=== PATIENT | male | born 1975 | race Two or more races ===

== ENCOUNTER 2021-12-07 17:07 | Emergency (ER) | payer OTHER, SELFPAY ==
--- NOTE | ~2021-12-07 | XR_ITS ---
EXAMINATION: XR CHEST CLINICAL INFORMATION: Chest pain COMPARISON: None TECHNIQUE: Frontal view of the chest was obtained. FINDINGS: No significant abnormality is noted involving the heart, lungs, mediastinum, bony thorax or soft tissues. XR/XR chest 1V IMPRESSION: No acute cardiopulmonary process.
--- NOTE | 2021-12-07 17:14 | ECG_ITS ---
Test Reason : bilat arm tingling Blood Pressure : / mmHG Vent. Rate : 093 BPM Atrial Rate : 093 BPM P-R Int : 166 ms QRS Dur : 140 ms QT Int : 372 ms P-R-T Axes : 041 -62 004 degrees QTc Int : 462 ms Normal sinus rhythm Right bundle branch block Left anterior fascicular block Bifascicular block Abnormal ECG No previous ECGs available Referred By: Generic ED Physician Electronically Signed By:MABEL FAUST
[2021-12-07 17:15] VITALS: BP 158/94; PULSE 97; RESP 18; TEMP 37; O2SAT 99; BMI 31.9
[2021-12-07 17:30] LABS: MANUAL DIFF FLAG NO
[2021-12-07 17:39] LABS: Basophils Absolute Auto 0.1 X10*3/uL (0.0-0.2); Basophils Percent Auto 1.1 % (0-2); Eosinophils Absolute Auto 0.3 X10*3/uL (0.0-0.4); Eosinophils Percent Auto 3.6 % (0-4); Hemoglobin 16.9 g/dl (14.0-18.0); Imm Gran Abs Auto 0.02 X10*3/uL (0.00-0.03); Imm Gran Pct Auto 0.3 % (0.0-0.4); Lymphocytes Absolute Auto 2.3 X10*3/uL (1.2-4.9); Lymphocytes Percent Auto 30.7 % (20-40); Mean Corpuscular HGB Conc 35.2 g/dl (31.0-36.0); Mean Corpuscular Hemoglobin 30.2 pg (27.0-33.0); Mean Corpuscular Volume 85.9 fL (80.0-98.0); Mean Platelet Volume 9.3 fL (9.4-12.4); Monocytes Absolute Auto 0.6 X10*3/uL (0.1-1.2); Monocytes Percent Auto 7.7 % (2-11); Neutrophils Absolute Auto 4.2 x10*3/uL (2.0-8.3); Neutrophils Percent Auto 56.6 % (45-73); Platelet Count 235 X10*3/uL (160-400); Red Blood Count 5.59 X10*6/uL (4.60-5.80); Red Cell Distribution Width 11.9 % (11.0-16.0); White Blood Count 7.5 X10*3/uL (4.8-10.8)
[2021-12-07 17:54] LABS: Anion Gap 14 (12-20); Blood Urea Nitrogen 11 mg/dL (9-16); Calcium 9.6 mg/dL (8.4-10.2); Carbon Dioxide 28 mmol/L (22-29); Chloride 102 mmol/L (96-108); Creatinine Clr Calc Pharmacy 91.7; Estimated Glomerular Filt Rate > 60; Glucose Random 110 mg/dL (60-115); Potassium 4.2 mmol/L (3.3-5.1); Sodium 140 mmol/L (135-145)
--- NOTE | 2021-12-07 20:44 | ED_ITS ---
HPI - General Adult General Chief complaint: General Medical Stated complaint: tingling arms lethargic Time Seen by Provider: 12/07/21 20:41 Source: patient Limitations: no limitations History of Present Illness HPI narrative: This is a 46-year-old male with history of type 2 diabetes, elevated cholesterol, and nicotine use, (vapes), who had felt very fatigued yesterday. This morning he woke up feeling like he had a hangover. Patient worked out today, including doing abdominal exercises, which he has been doing all week and subsequently had a tingling feeling in his upper arms, worse on the left. The right arm tingling has resolved but he still some tingling on the left side. The patient saw his primary care physician who did an EKG and noting that the patient had abnormality, sent the patient to the ED for evaluation. Patient denies any chest pain or shortness of breath. He has not had any nausea or sweats. Denies any neck pain. Related Data Previous Rx's Medication Instructions Recorded insulin degludec 100 unit/mL (3 40 unit (0.4 mL) subcut BEDTIME 11/29/20 mL) subcutaneous pen (Tresiba #45 mL FlexTouch U-100 insulin) bupropion HCl 150 mg 24 hr tablet, 150 mg PO QAM #90 tabs 02/27/21 extended release rosuvastatin 10 mg tablet 10 mg PO DAILY 90 days #90 tabs 04/25/21 flash glucose scanning reader #1 ea 05/15/21 (FreeStyle Job 14 Day [place]) flash glucose sensor (FreeStyle #1 ea 05/15/21 Job 14 Day Sensor kit) metformin 1,000 mg tablet 1,000 mg PO BID 90 days #180 tabs 09/11/21 pen needle, diabetic 31 gauge x #100 ea 12/03/21/16 (BD Ultra-Fine Mini Pen Needle) Allergies Allergy/AdvReac Type Severity Reaction Status Date / Time naproxen [NAPROXEN] Allergy Severe LIPS Verified 12/07/21 17:15 SWELL, Oral hives prednisone [PREDNISONE] Allergy Severe LIPS Verified 12/07/21 16:03 SWELL, Lip swelling, skin breaking Review of Systems Review of Systems: Yes all other systems are reviewed and are negative Constitutional: Constitutional: Reports as per HPI and Denies fever(s) Eyes: Eyes: Reports as per HPI and Reports no additional eye complaints ENT: Reports system reviewed and no additional complaints, except as documented, Reports as per HPI, Denies nasal congestion, Denies nasal discharge and Denies sore throat Cardiovascular: Cardiovascular: Reports as per HPI, Denies chest pain and Denies dyspnea Respiratory: Respiratory: Reports as per HPI, Denies cough and Denies dyspnea Gastrointestinal: Gastrointestinal: Reports as per HPI, Denies abdominal pain, Denies diarrhea and Denies vomiting Genitourinary: Genitourinary: Reports as per HPI, Denies hematuria, Denies dysuria and Denies urinary frequency Musculoskeletal: Musculoskeletal: Reports no additional musculoskeletal complaints and Denies numbness Integumentary/Breasts: Skin/Breast: Reports as per HPI and Denies rash Neurologic: Reports as per HPI, Denies focal weakness, Denies numbness and Reports paresthesias Psychiatric: Psychiatric: Reports no additional psychiatric complaints and Reports as per HPI Endocrine: Endocrine: Reports no additional endocrine complaints and Reports as per HPI Hematologic/Lymphatic: Hematologic/Lymphatic: Reports no additional hematologic/lymphatic complaints, Reports as per HPI and Reports other (No peripheral edema) [facility] Past Medical History Medical History (Updated 12/07/21 @ 20:44 by Krsihan Mcnair MD) Anxiety Insomnia PTSD (post-traumatic stress disorder) Type 2 diabetes mellitus Family History Family History (Updated 08/19/20 @ 10:14 by MIGUEL Nichols) Father No problems noted. Mother No problems noted. Social History Social History Housing: House Patient Tobacco Use Status: Former Tobacco user e-Cigarette/Vaping Use: Currently Using Second Hand Smoke Exposure: No Advance Directives: No Advance Directives Information Provided: No service: Yes Current occupational status: retired Cognitive needs: No Hearing needs: No Vision needs: No Physical Exam ED Vital Signs: Vital Signs - 24 hr 12/07/21 17:15 Temperature 98.6 F Pulse Rate 97 Respiratory Rate 18 Blood Pressure 158/94 H Pulse Oximetry 99 Oxygen Delivery Method Room Air BMI result Body Mass Index 31.9 Const General: no acute distress Orientation/consciousness: patient oriented x3 HENMT Head: Yes normal to inspection General nose exam: Normal external nose present Mouth: moist mucous membranes Throat: Yes posterior oropharynx normal, Yes tonsils normal and Yes uvula midline Eyes Eyelids: Yes eyelids normal Conjunctivae: conjunctivae normal Pupils: Equal, round and reactive pupils present Neck Neck: Yes supple Resp Effort & Inspection: normal respiratory effort Auscultation: clear to auscultation bilaterally Cardio Rate: regular rate Rhythm: regular rhythm Heart sounds: S1 normal heart sound present, S2 normal heart sound present, no gallops, no murmurs and no rubs GI Inspection: No distended Palpation (GI): Soft to palpation and nontender Auscultation: normal bowel sounds Skin General skin exam: other (Warm and dry) Neuro General: patient oriented x3 and CN's II-XI intact bilaterally Cranial nerves: Yes Equal, round and reactive pupils present Motor exam (neuro): 5/5 motor strength present throughout Extrem General: Yes no pedal edema Psych Affect: normal affect Attitude: cooperative Medical Decision Making [facility] Narrative Medical decision making narrative: Patient with paresthesias to his upper arms after working out, doing abdominal exercises this morning. Patient had resolution of the right-sided symptoms. Patient had felt very fatigued yesterday but has not had any chest pain or shortness of breath or nausea or unusual sweats. Patient appears well clinically. EKG was done at the PCP office and since it was abnormal. The patient was sent to the ED. EKG shows bifascicular block but no ischemic changes. Troponin is negative. Chest x-ray is negative. Patient likely had nerve contusion in his neck causing paresthesias in his arms. Patient is advised to avoid doing abdominal crunches or any other exercise which might strain his neck for the next week or so. He can follow up with primary care physician Lab Data Lab results reviewed: Yes I reviewed the patient's lab results. Result diagrams: 12/07/21 17:25 12/07/21 17:25 Labs: Lab Results 12/07/21 12/07/21 12/07/21 Range/Units 17:25 17:25 17:25 WBC 7.5 (4.8-10.8) X10*3/uL RBC 5.59 (4.60-5.80) X10*6/uL Hgb 16.9 (14.0-18.0) g/dl Hct 48.0 (42.0-52.0) % MCV 85.9 (80.0-98.0) fL MCH 30.2 (27.0-33.0) pg MCHC 35.2 (31.0-36.0) g/dl RDW 11.9 (11.0-16.0) % Plt Count 235 (160-400) X10*3/uL MPV 9.3 L (9.4-12.4) fL Immature Gran % (Auto) 0.3 (0.0-0.4) % Neut % (Auto) 56.6 (45-73) % Lymph % (Auto) 30.7 (20-40) % Roane % (Auto) 7.7 (2-11) % Eos % (Auto) 3.6 (0-4) % Baso % (Auto) 1.1 (0-2) % Lymph # (Auto) 2.3 (1.2-4.9) X10*3/uL Roane # (Auto) 0.6 (0.1-1.2) X10*3/uL Eos # (Auto) 0.3 (0.0-0.4) X10*3/uL Baso # (Auto) 0.1 (0.0-0.2) X10*3/uL Abs Immat Gran (auto) 0.02 (0.00-0.03) X10*3/uL Absolute Neuts (auto) 4.2 (2.0-8.3) x10*3/uL Absolute Nucleated RBC 0.000 (0.0-0.012) X10*3/uL Nucleated RBC % (auto) 0.0 (0.0-0.2) /100WBC Sodium 140 (135-145) mmol/L Potassium 4.2 (3.3-5.1) mmol/L Chloride 102 (96-108) mmol/L Carbon Dioxide 28 (22-29) mmol/L Anion Gap 14 (12-20) BUN 11 (9-16) mg/dL Creatinine 1.01 (0.5-1.4) mg/dL Estim Creat Clear Calc 91.7 Estimated GFR > 60 Random Glucose 110 (60-115) mg/dL Calcium 9.6 (8.4-10.2) mg/dL Troponin I High Sens 8.0 (<3.5-35.0) ng/L Imaging Data Chest x-ray: Radiologist's impression: IMPRESSION: No acute cardiopulmonary process. ECG Data Attestation: I personally reviewed and interpreted this ECG as follows: Interpretation: Sinus rhythm with a rate of 93. Right bundle-branch block. Left anterior fascicular block. No ST elevation depression. Discharge Plan Discharge Clinical Impression: Arm paresthesia, left, Bifascicular bundle branch block Patient Disposition: Home, Self-Care Instructions: Paresthesia (ED) Additional Instructions: Avoid doing ABS or other exercises which strain her neck, for the next week. Follow up with her primary care physician. Return for any new or worsened symptoms. Your EKG showed a bifascicular block, which is not in itself concerning. Prescriptions: No Action bupropion HCl 150 mg tablet extended release 24 hr 150 mg PO QAM Qty: 90 3RF rosuvastatin 10 mg tablet 10 mg PO DAILY 90 Days Qty: 90 4RF (DME) FreeStyle Job 14 Day [place] Misc See Rx Instructions .Route Qty: 1 3RF Rx Instructions: bid testing (DME) FreeStyle Job 14 Day Sensor Kit See Rx Instructions .Route Qty: 1 3RF Rx Instructions: BID testing metformin 1,000 mg tablet 1,000 mg PO BID 90 Days Qty: 180 0RF (DME) pen needle, diabetic [BD Ultra-Fine Mini Pen Needle] 31 gauge x 3/16 needle See Rx Instructions .ROUTE .MEDSUPPLY Qty: 100 2RF Rx Instructions: As directed Tresiba FlexTouch U-100 100 unit/mL (3 mL) insulin pen 40 unit subcut BEDTIME Qty: 45 3RF
== END 2021-12-07 20:57 | disposition home or self-care (01) ==
PROVIDERS: Emergency Provider Emergency Medicine; PCP Nurse Practitioner Family
DX: I45.2 Bifascicular block (principal); R20.2 Paresthesia of skin; E11.9 Type 2 diabetes mellitus without complications; F41.9 Anxiety disorder, unspecified; Z79.4 Long term (current) use of insulin; Z79.899 Other long term (current) drug therapy; Z79.02 Long term (current) use of antithrombotics/antiplatelets; Z87.891 Personal history of nicotine dependence
CPT/HCPCS: 36415; 71045; 80048; 84484; 85025; 93005; 99283; 99284

== ENCOUNTER 2022-01-18 06:22 | Outpatient (REF) | payer OTHER, SELFPAY ==
[2022-01-18 11:32] LABS: MANUAL DIFF FLAG NO
[2022-01-18 11:44] LABS: Appearance Urine Cloudy; Color Urine Yellow; Glucose Urine UA 100 mg/dL (Negative); Leukocyte Esterase Urine Negative (Negative); Nitrite Urine Negative (Negative); PH 5.5 (5.0-9.0); Specific Gravity - Urine >= 1.030 (1.005-1.025); Urine Blood Negative (Negative); Urine Ketones Trace mg/dL (Negative); Urine Protein Negative (Neg-Trace)
[2022-01-18 11:44] LABS: Basophils Absolute Auto 0.1 X10*3/uL (0.0-0.2); Eosinophils Absolute Auto 0.6 X10*3/uL (0.0-0.4); Eosinophils Percent Auto 6.5 % (0-4); Hematocrit 48.5 % (42.0-52.0); Hemoglobin 16.4 g/dl (14.0-18.0); Imm Gran Abs Auto 0.03 X10*3/uL (0.00-0.03); Imm Gran Pct Auto 0.3 % (0.0-0.4); Lymphocytes Absolute Auto 2.2 X10*3/uL (1.2-4.9); Lymphocytes Percent Auto 24.2 % (20-40); Mean Corpuscular HGB Conc 33.8 g/dl (31.0-36.0); Mean Corpuscular Hemoglobin 30.1 pg (27.0-33.0); Monocytes Absolute Auto 0.7 X10*3/uL (0.1-1.2); Monocytes Percent Auto 7.3 % (2-11); Neutrophils Absolute Auto 5.4 x10*3/uL (2.0-8.3); Neutrophils Percent Auto 60.7 % (45-73); Platelet Count 273 X10*3/uL (160-400); Red Blood Count 5.45 X10*6/uL (4.60-5.80); Red Cell Distribution Width 12.2 % (11.0-16.0); White Blood Count 8.9 X10*3/uL (4.8-10.8)
[2022-01-18 12:01] LABS: Estimated Average Glucose 183 mg/dL
[2022-01-18 12:28] LABS: TSH reflex Free T4 1.96 uIU/mL (0.32-4.0)
[2022-01-18 12:31] LABS: Alanine Aminotransferase 21 U/L (0-40); Albumin Level 4.5 g/dL (3.5-5.0); Alkaline Phosphatase 76 U/L (39-117); Anion Gap 13 (12-20); Aspartate Amino Transferase 16 U/L (5-37); Bilirubin Total 0.6 mg/dL (0.0-1.0); Blood Urea Nitrogen 16 mg/dL (9-16); Calcium 9.5 mg/dL (8.4-10.2); Carbon Dioxide 28 mmol/L (22-29); Chloride 101 mmol/L (96-108); Cholesterol 104 mg/dL; Estimated Glomerular Filt Rate > 60; Glucose Fasting 151 mg/dL (60-99); HDL Cholesterol 33 mg/dL; LDL Cholesterol Calculated 31 mg/dl; Potassium 4.1 mmol/L (3.3-5.1); Sodium 138 mmol/L (135-145); Total Protein 7.2 g/dL (6.5-8.0); Triglycerides 201 mg/dL
[2022-01-18 13:07] LABS: Creatinine Urine 345.19 mg/dL; Microalbum/Creatinine Ratio Ur 6.6 ug/mg cr
== END 2022-01-18 06:23 | disposition home or self-care (01) ==
LOC: HO.HMGCLDS 06:22
PROVIDERS: PCP Nurse Practitioner Family; Visit Provider Nurse Practitioner Family
DX: E11.9 Type 2 diabetes mellitus without complications (principal)
CPT/HCPCS: 36415; 80053; 80061; 81003; 82043; 83036; 84443; 85025

== ENCOUNTER → 2022-03-07 09:19 | Outpatient (BNVA) | payer OTHER, SELFPAY | PROVIDERS: PCP Nurse Practitioner Family; Referring Provider Nurse Practitioner Family; Visit Provider Physician Assistant | DX: Z12.11 Encounter for screening for malignant neoplasm of colon (principal); I45.2 Bifascicular block | CPT/HCPCS: 99202 ==

== ENCOUNTER → 2022-03-08 07:21 | Outpatient (REF) | payer OTHER, SELFPAY ==
--- NOTE | 2022-03-08 07:25 | HM_ITS ---
Conclusion: 1. Patient was monitored for total period of 3 days 2. Baseline was normal sinus rhythm with average heart of 88 beats per minute 3. No significant tachy or Blu arrhythmias noted 4. No patient reported events MTDD
== END ==
LOC: HO.CARD 07:21
PROVIDERS: Visit Provider Nurse Practitioner Family
DX: I45.2 Bifascicular block (principal)
CPT/HCPCS: 93242

== ENCOUNTER → 2022-04-18 14:36 | Outpatient (BNVA) | payer OTHER, SELFPAY | PROVIDERS: PCP Nurse Practitioner Family; Referring Provider Nurse Practitioner Family; Visit Provider Internal Medicine | DX: I45.2 Bifascicular block (principal); R07.2 Precordial pain | CPT/HCPCS: 99202 ==

== ENCOUNTER → 2022-04-26 07:50 | Outpatient (REF) | payer OTHER, SELFPAY ==
--- NOTE | ~2022-04-26 | NM_ITS ---
EXERCISE MYOCARDIAL PERFUSION STUDY INDICATION: Bibasilar block, assess for coronary disease and ischemia TECHNIQUE: The patient was brought in for an exercise perfusion study on 04/26/2022. Patient performed exercise as per Ellis protocol and was injected 30 mCi of sestamibi once target heart rate was achieved. Images were obtained using the SPECT gamma camera interlaced with the gating device. Images were obtained in supine position. Resting perfusion study was performed on 04/27/2022. Patient was administered 30 mCi of sestamibi intravenously at rest. Images were then obtained in supine position. Images were processed with the software and compared side to side in short axis, horizontal long axis and vertical long axis views. Total DLP 101mGy-cm. FINDINGS: Raw images were reviewed. The stress perfusion study showed no significant perfusion abnormality. Both uncorrected as well as CT attenuation corrected images were reviewed. The gated study shows normal LV systolic function with calculated LVEF of 60%. LV cavity is normal in size. The gated study shows normal wall thickening and contraction of segments. Resting study shows no significant perfusion abnormality. Gating at rest reveals normal wall motion with ejection fraction at 60%. The findings are consistent with no definite reversible or fixed perfusion abnormality. NM/NM cardiolite stress test IMPRESSION: 1. Myocardial perfusion imaging study shows normal myocardial perfusion. 2. Gated LVEF is 60% during stress and rest. 3. Transient ischemic dilatation not present. EKG component of the test reported separately.
--- NOTE | 2022-04-26 07:53 | CA_ITS ---
Acquisition Time: 2022-04-26 08:11:58 Total Exercise Time: 00:12:00 Test Indications: BIFISCULAR BLOCK Medications: SEE CHART Protocol: SHARA Max HR: 150 BPM 86% of Pred: 173 BPM Max BP: 192/064 mmHG Max Work Load: 13.4 METS Exercise stress test with exercise 12 min of Shara protocol, achieving 86% MPHR, 13.4 METs, without anginal symptoms, without arrythmia, with normotensive response to exercise, without EKG changes meeting critiera for ischemia. There is ST/T wave abnormality V1-V3 at baseline and throughout test consistent with RBBB. Nuclear images pending. Test reviewed with Dr Borjas. Referred By: Juanito Borjas Overread By: KAMARI ROY
== END ==
LOC: HO.CARD 07:50
PROVIDERS: PCP Nurse Practitioner Family; Visit Provider Internal Medicine
DX: R07.2 Precordial pain (principal); I45.2 Bifascicular block
CPT/HCPCS: 78452; 93017; A9500

== ENCOUNTER → 2022-04-27 08:16 | Outpatient (REF) | payer OTHER, SELFPAY ==
--- NOTE | 2022-04-27 07:57 | CA_ITS ---
Transthoracic Echocardiogram Patient (Last, First, Middle): Ramses Lara, Gender: Male Date of : 1975 Age: 46 Procedure Date: 04/27/2022 Procedure Type: Transthoracic Echocardiogram Location: OP Height: 165.1 cm Weight: 84. kg BSA: 1.91 m2 Heart Rate: bpm BP: 128 / 80 mmHg Head Swamper: TO Referring MD: Juanito Borjas MD Symptoms: R07.2 - Precordial pain Study Quality: Fair ECG Rhythm: Sinus Conclusions: - The left ventricular systolic function is low normal. The calculated ejection fraction is 54% by biplane method. - The basal inferior segment is hypokinetic. - No obvious valvular pathology seen on this study. Findings Left Ventricle Normal left ventricular cavity size. There is normal left ventricular wall thickness. The left ventricular systolic function is low normal. The calculated ejection fraction is 54% by biplane method. Diastolic function is normal for age. Wall Motion Rest Echo Findings The basal inferior segment is hypokinetic. Right Ventricle Normal right ventricular cavity size and systolic function. Atria Both atria are normal in size. Aortic Valve There is a normal trileaflet aortic valve. There is no aortic valve stenosis. There is no aortic valve regurgitation. Mitral Valve The mitral valve appears normal. There is no mitral valve regurgitation. There is no mitral valve stenosis. Pulmonic Valve The pulmonic valve is likely normal. Tricuspid Valve Normal tricuspid valve structure. There is trace tricuspid valve regurgitation. There is no evidence of pulmonary hypertension. Great Vessels The asc aorta is normal in size. Venous The inferior vena cava is normal in size and collapses greater than 50% with inspiration. Pericardium/Pleural There is no evidence of pericardial effusion. Prior Study Comparison No prior study available for comparison. Recommendations, Care & Conclusions No obvious valvular pathology seen on this study. Measurements 2D Linear Measurements IVSd: 1.00 0.6-0.9/0.6-1.0 cm LVIDd: 5.03 3.9-5.3/4.2-5.9 cm LVIDd Index: 2.63 2.4-3.2/2.2-3.1 cm/m2 LVIDs: 3.37 2.0-3.6 cm LVPWd: 1.07 0.7-1.1 cm LA Diam: 3.40 2.7-3.8/3.0-4.0 cm LAIDs Index: 1.78 1.5-2.3 cm/m2 LV Mass: 239.87 67-162/88-224 g LV Mass Index: 125.59 43-95/49-115 g/m2 LVOT Diam: 2.40 3.0+(-)1.3 cm 2D Systolic Function EF 4C: 50.70 >55% EF 2C: 54.70 >55% EF BiP: 53.60 >55% Mitral Valve MV Pk E: 0.55 MV PK A: 0.63 MV Decel Time: 266.00 E/A: 0.90 E'Lateral: 10.20 E'Medial: 6.64 E/E' Med: 8.30 E/E' Lat: 5.40 PHT: 78.00 MVA PHT: 2.82 Decel Harnett: 2.08 Aortic Valve AoV Pk Lester: 0.96 AoV Mn Lester: 0.72 AoV VTI: 0.21 AoV Pk Grad: 4.00 Aov Mn Grad: 2.00 HILL Cont.VTI: 2.72 LVOT LVOT Pk Lester: 0.67 LVOT Mn Lester: 0.43 LVOT VTI: 0.12 LVOT Pk Grad: 2.00 LVOT Mn Grad: 1.00 LVOT Diam: 2.40 LVOT Area: 4.52 Diastolic Function MV Pk E: 0.55 MV Pk A: 0.63 E/A: 0.90 E'Medial: 6.64 E/E' Med: 8.30 E' Laterial: 10.20 E/E' Lat: 5.40 Right Ventricle TAPSE (mm): 20.00 TVS' Lester: 10.70 Tricuspid Valve TR Pk Lester: 1.74 TR Pk Grad: 12.00 RA Press: 3.00 RVSP: 15.00 Great Vessels Aorta Sinus of Valsalva: 3.27 2.0-3.5 cm Ao Asc: 3.00 2.1-3.4 cm Updated in Other Vendor System with Status of Final Juanito Borjas MD electronically signed on 04/29/2022 12:30:21 PM with status of Final
== END ==
LOC: HO.CARD 08:16
PROVIDERS: PCP Nurse Practitioner Family; Visit Provider Internal Medicine
DX: R07.2 Precordial pain (principal)
CPT/HCPCS: 93306

== ENCOUNTER → 2022-09-04 08:52 | Outpatient (BNVA) | payer OTHER, SELFPAY | PROVIDERS: PCP Nurse Practitioner Family; Referring Provider Nurse Practitioner Family; Visit Provider Internal Medicine | DX: I45.2 Bifascicular block (principal); E11.9 Type 2 diabetes mellitus without complications; Z79.4 Long term (current) use of insulin; Z79.84 Long term (current) use of oral hypoglycemic drugs | CPT/HCPCS: 93005; 99212 ==

== ENCOUNTER → 2023-02-04 12:07 | Outpatient (BNV) | payer OTHER, SELFPAY | PROVIDERS: PCP Nurse Practitioner Family; Visit Provider Internal Medicine Gastroenterology | DX: Z12.11 Encounter for screening for malignant neoplasm of colon (principal); K63.5 Polyp of colon; K57.30 Diverticulosis of large intestine without perforation or abscess without bleeding; K64.8 Other hemorrhoids | CPT/HCPCS: 45385 ==

== ENCOUNTER → 2023-02-04 12:07 | Day surgery (SDC) | payer OTHER, SELFPAY ==
--- NOTE | 2023-02-01 12:03 | HO.ANESPROP2 ---
HPI - Anesthesia Eval Consult details Narrative: 47yo M for Colonoscopy Cardiac w/u early 2022 for bifasicular block on EKG. ECHO and stress WNL. Routine cardiology f/u only. [facility] Active Problems Active Problems: All Active Problems (Updated 09/04/22 @ 09:42 by Juanito Borjas MD) Type 2 diabetes mellitus (Acute) Precordial chest pain (Acute) HTN (hypertension) (Acute) Bifascicular block (Acute) Screening for colon cancer (Acute) Left bundle branch block (Acute) Right knee pain (Acute) Diabetes (Acute) Physical exam (Acute) Past Medical History Medical History Insomnia PTSD (post-traumatic stress disorder) Anxiety Type 2 diabetes mellitus Family History Family History Father HTN (hypertension) Prostate atrophy Mother Arthritis Thyroid disease Brother Diabetes 1.5, managed as type 1 Son Diabetes 1.5, managed as type 1 Daughter Arthritis Paternal Grandfather Heart attack Paternal Uncle Heart attack Maternal Grandfather Heart attack Surgical History Surgical History (Updated 02/04/23 @ 12:18 by Wilda Ngo RN) History of incision and drainage H/O circumcision Social History Social History Housing: House Alcohol intake: current Alcohol intake frequency: holidays/special occasions only Patient Tobacco Use Status: Former Tobacco user e-Cigarette/Vaping Use: Currently Using Second Hand Smoke Exposure: No Use of substances other than those prescribed or required for medical reasons: No Are you DNR?: No Advance Directives: No Advance Directives Information Provided: Yes service: Yes Current occupational status: retired Current occupation: retired Cognitive needs: No Hearing needs: No Vision needs: No Meds Allergies Allergy/AdvReac Type Severity Reaction Status Date / Time naproxen [NAPROXEN] Allergy Severe LIPS Verified 09/04/22 08:59 SWELL, Oral hives prednisone [PREDNISONE] Allergy Severe LIPS Verified 09/04/22 08:59 SWELL, Lip swelling, skin breaking Exam Exam Date and Time: February 01, 2023 1203 Narrative Narrative: Per 08/2022 cardiac note: In the echocardiogram, LVEF 54%. Basal inferior segment thought to be hypokinetic but on another look, could be is artifactual and may be an over call as it is common in this area. In the stress test, exercise performance was excellent as he reached 13.4 Mets. No angina. Perfusion imaging was unremarkable. Assessment and Plan Assessment Anesthesia Assessment: Chart Reviewed
--- NOTE | 2023-02-04 11:52 | MHC.SHP ---
Pre-Procedural Eval Section A Date of Service: 02/04/23 The patient is an INPATIENT: No The History & Physical has been completed within 30 days and I have reviewed it.: No Section B Chief Complaint: screening Relevant Family History (Specify if Yes): No Relevant Social History: Tobacco Use (former smoker) Present Medications: see Short Stay Collaborative assessment Medical History: Significant History (Anxiety Insomnia PTSD (post-traumatic stress disorder) Type 2 diabetes mellitus) History of Previous Operations: No relevant previous surgery Allergies: Allergies Allergy/AdvReac Type Severity Reaction Status Date / Time naproxen [NAPROXEN] Allergy Severe LIPS Verified 09/04/22 08:59 SWELL, Oral hives prednisone [PREDNISONE] Allergy Severe LIPS Verified 09/04/22 08:59 SWELL, Lip swelling, skin breaking Review of Systems Sugical H&P ROS: Negative: Constitution, Cardiovascular, Respiratory and Gastrointestinal Exam Surgical H&P Exam: Normal: Heart, Normal: Lungs, Normal: Extremities and Normal: Abdomen Plan Diagnosis/Plan: Unchanged I have reviewed the history and physical and performed a pertinent physical examination on my patient. No changes have occurred unless specified. Time Spent With Patient Time: Total time managing care of this patient today ____ minutes.
--- NOTE | 2023-02-04 12:10 | HO.ANESPROP2 ---
[facility] Active Problems Active Problems: All Active Problems (Updated 09/04/22 @ 09:42 by Juanito Borjas MD) Type 2 diabetes mellitus (Acute) Precordial chest pain (Acute) HTN (hypertension) (Acute) Bifascicular block (Acute) Screening for colon cancer (Acute) Left bundle branch block (Acute) Right knee pain (Acute) Diabetes (Acute) Physical exam (Acute) Past Medical History Medical History Insomnia PTSD (post-traumatic stress disorder) Anxiety Type 2 diabetes mellitus Functional capacity: independent ambulation Family History Family History Father HTN (hypertension) Prostate atrophy Mother Arthritis Thyroid disease Brother Diabetes 1.5, managed as type 1 Son Diabetes 1.5, managed as type 1 Daughter Arthritis Paternal Grandfather Heart attack Paternal Uncle Heart attack Maternal Grandfather Heart attack Family history of problems with anesthesia: No Social History Social History Housing: House Alcohol intake: current Alcohol intake frequency: holidays/special occasions only Patient Tobacco Use Status: Former Tobacco user e-Cigarette/Vaping Use: Currently Using Second Hand Smoke Exposure: No Advance Directives: No Advance Directives Information Provided: Yes service: Yes Current occupational status: retired Current occupation: retired Cognitive needs: No Hearing needs: No Vision needs: No Meds Allergies Allergy/AdvReac Type Severity Reaction Status Date / Time naproxen [NAPROXEN] Allergy Severe LIPS Verified 09/04/22 08:59 SWELL, Oral hives prednisone [PREDNISONE] Allergy Severe LIPS Verified 09/04/22 08:59 SWELL, Lip swelling, skin breaking Active Medications: Current Medications Lactated Ringer's (Lr) 1,000 mls @ 100 mls/hr IVCONT .Q10H GORDO Exam Exam Date and Time: February 04, 2023 1210 Airway Mallampati Class: III TM Dist: >3cm Neck ROM: Full Heart: RRR Lungs: CTA Assessment and Plan Assessment Anesthesia Assessment: Anesthesia Plan Discussed Final Anesthetic Review Family History of Problems with Anesthesia: No NPO: Yes Final Preanesthetic Review: Meds/Allgs Chart Reviewed, Consent Obtained/Reviewed and Anes Risks/Benef Reviewed Patient Risk: Low Procedure Risk: Low Anesthetic Plan Anesthetic Plan: MAC: Disposition: Standard PACU
[2023-02-04 12:20] VITALS: BMI 30.9
[2023-02-04 12:26] VITALS: BP 171/75; PULSE 88; RESP 16; TEMP 36.5; O2SAT 99
[2023-02-04 12:33] LABS: Glucose, Whole Blood 94 mg/dL (60-115)
[2023-02-04] MEDS: Lactated Ringers 1,000 ML 100 ML IVCONT (12:36)
--- NOTE | 2023-02-04 13:05 | W.PM.OPN ---
Operative Note Operative Note Date of Service: 02/04/23 Narrative: COLONOSCOPY TILL CECUM WITH SNARE POLYPECTOMY Pre-op diagnosis: colon cancer screening (1st colonoscopy) Post-op diagnosis:? colon polyp, diverticulosis, hemorrhoids Endoscopist:? Marisa Frank MD Anesthesia:?MAC Consent: Indications for the procedure and potential complications of bleeding, perforation, reaction to medications and missed diagnosis were discussed with the patient and informed consent was obtained. Instrument: Olympus PCF H 190 L variable stiffness pediatric colonoscope Monitoring: Vital signs and clinical assessment, intermittent blood pressure monitoring, continuous EKG monitoring, Pulse oximetry and Carbon Dioxide monitoring were done throughout the procedure. Please see anesthesia flowsheet. Colon withdrawl time was 23 minutes. Procedure: The patient was placed in the left lateral decubitis position and pre-procedure medications were administered. After a digital rectal examination of the ano-rectum, the video colonoscope was inserted into the rectum and advanced through the colon to the cecum. The colonoscope was slowly withdrawn in a retrograde panoramic fashion and the colon mucosa was carefully examined including a retroflexed view of the rectum. Findings and interventions are described below. Procedure Difficulty: Without difficulty Findings: Terminal Ileum: Not evaluated Cecum: Normal Ascending Colon: Normal Transverse Colon: A 7-8 mm sessile polyp - removed with a cold snare Descending Colon: Normal Sigmoid Colon: Moderate diverticulosis Rectum: Normal Ano-rectum: Moderate internal hemorrhoids Colon preparation: Good aftre some irrigation Impression and Post Procedure Diagnosis: Colonoscopy Findings: One small polyps removed Moderate diverticulosis seen in the sigmoid colon Moderate hemorrhoids on retroflexed exam. Plan: Await pathology results Patient has an appointment on 02/18/23 in the GI Clinic with EDUARDA Klein. Repeat Colonoscopy interval based on path results - in 5 years if polyps are adenomatous and 10 years if polyps are hyperplastic. Above findings were reviewed with the patient and colon polyps and diverticulosis handouts were given in the discharge area
--- NOTE | 2023-02-04 13:22 | P.CONAN_ITS ---
[facility] Active Problems Active Problems: All Active Problems (Updated 09/04/22 @ 09:42 by Juanito Borjas MD) Precordial chest pain (Acute) HTN (hypertension) (Acute) Bifascicular block (Acute) Screening for colon cancer (Acute) Left bundle branch block (Acute) Right knee pain (Acute) Diabetes (Acute) Physical exam (Acute) Type 2 diabetes mellitus (Acute) Past Medical History Medical History Insomnia PTSD (post-traumatic stress disorder) Anxiety Type 2 diabetes mellitus Functional capacity: independent ambulation Family History Family History Father HTN (hypertension) Prostate atrophy Mother Arthritis Thyroid disease Brother Diabetes 1.5, managed as type 1 Son Diabetes 1.5, managed as type 1 Daughter Arthritis Paternal Grandfather Heart attack Paternal Uncle Heart attack Maternal Grandfather Heart attack Family history of problems with anesthesia: No Surgical History Surgical History (Updated 02/04/23 @ 12:18 by Wilda Ngo RN) History of incision and drainage H/O circumcision Social History Social History Housing: House Alcohol intake: current Alcohol intake frequency: holidays/special occasions only Patient Tobacco Use Status: Former Tobacco user e-Cigarette/Vaping Use: Currently Using Second Hand Smoke Exposure: No Use of substances other than those prescribed or required for medical reasons: No Are you DNR?: No Advance Directives: No Advance Directives Information Provided: Yes service: Yes Current occupational status: retired Current occupation: retired Cognitive needs: No Hearing needs: No Vision needs: No Meds Allergies Allergy/AdvReac Type Severity Reaction Status Date / Time naproxen [NAPROXEN] Allergy Severe LIPS Verified 09/04/22 08:59 SWELL, Oral hives prednisone [PREDNISONE] Allergy Severe LIPS Verified 09/04/22 08:59 SWELL, Lip swelling, skin breaking Active Medications: Current Medications Lactated Ringer's (Lr) 1,000 mls @ 100 mls/hr IVCONT .Q10H GORDO Last Admin: 02/04/23 12:36 Dose: 100 mls/hr Exam Exam Date and Time: February 04, 2023 1322 Height,Weight and Vital Signs: Height 5 ft 5 in Weight 84.141 kg Last Vital Signs Temp 97.7 F 02/04/23 12:26 Pulse 88 02/04/23 12:26 Resp 16 02/04/23 12:26 BP 171/75 H 02/04/23 12:26 Pulse Ox 99 02/04/23 12:26 O2 Del Method Room Air 02/04/23 12:26 Pertinent Lab Results Pertinent Lab Results: Laboratory Tests 02/04/23 12:30 POC Glucose 94 Airway Mallampati Class: II TM Dist: >3cm Neck ROM: Full Heart: RRR Lungs: CTA Assessment and Plan Assessment Anesthesia Assessment: Anesthesia Plan Discussed Final Anesthetic Review Family History of Problems with Anesthesia: No ASA Class: II Final Preanesthetic Review: Meds/Allgs Chart Reviewed, Consent Obtained/Reviewed and Anes Risks/Benef Reviewed Patient Risk: Low Procedure Risk: Low Anesthetic Plan Anesthetic Plan: MAC: Disposition: Standard PACU
[2023-02-04 13:48] VITALS: BP 120/76; PULSE 85; RESP 16; TEMP 36.2; O2SAT 95
[2023-02-04 14:03] VITALS: BP 124/78; PULSE 65; RESP 16; O2SAT 65
--- NOTE | 2023-02-04 14:14 | HO.POSTANES ---
Post Anesthesia Evaluation Post Anesthesia Evaluation Date of Service: 02/04/23 Vital Signs: Vital Signs Temp Pulse Resp BP Pulse Ox O2 Del Method 02/04/23 14:03 65 16 124/78 65 L Room Air 02/04/23 13:48 97.1 F 85 16 120/76 95 Room Air 02/04/23 12:26 97.7 F 88 16 171/75 H 99 Room Air Anesthesia: Monitored Mental Status: Awake Pain Control: Satisfactory Nausea/Vomiting: None Hydration: Adequate Anesthesia-Related Issues: No Anes. Related Issues
[2023-02-04 14:18] VITALS: BP 116/72; PULSE 67; RESP 16; TEMP 36.2; O2SAT 99
== END | disposition home or self-care (01) ==
PROVIDERS: PCP Nurse Practitioner Family; Visit Provider Internal Medicine Gastroenterology
PROC: 0DJD8ZZ Inspection of Lower Intestinal Tract, Via Natural or Artificial Opening Endoscopic (ICD-10-PCS; CPT 45378; principal; 2023-02-04 13:40)
DX: Z12.11 Encounter for screening for malignant neoplasm of colon (principal); K63.5 Polyp of colon; K57.30 Diverticulosis of large intestine without perforation or abscess without bleeding; K64.8 Other hemorrhoids; I10 Essential (primary) hypertension; E11.9 Type 2 diabetes mellitus without complications; F41.9 Anxiety disorder, unspecified; F43.10 Post-traumatic stress disorder, unspecified; G47.00 Insomnia, unspecified; Z79.4 Long term (current) use of insulin; Z79.899 Other long term (current) drug therapy; Z88.8 Allergy status to other drugs, medicaments and biological substances; Z87.891 Personal history of nicotine dependence
CPT/HCPCS: 45385; 82947; 88305

== ENCOUNTER 2023-02-18 09:34 | Outpatient (AMB) | payer OTHER, SELFPAY ==
--- NOTE | 2023-02-18 09:45 | A.OFFVIS_ITS ---
Intake Vital Signs 02/18/23 09:48 Height 5 ft 2 in Weight 188 lb BMI 34.4 BP 137/68 Blood Pressure Location Lt brachial Position Sitting Pulse 87 Intake Visit Reasons: S/P [place]; Intake Note: Patient follow up for Colonoscopy results. Patient denies any GI issues. Wringer Operator Required: No Accompanied by: Spouse Allergies naproxen [NAPROXEN] Allergy (Severe, Verified 02/18/23 09:44) LIPS SWELL, Oral hives prednisone [PREDNISONE] Allergy (Severe, Verified 02/18/23 09:44) LIPS SWELL, Lip swelling, skin breaking HPI HPI Comments History of Present Illness Details A 47 y/o male f/u after index screening colonoscopy- Tolerated procedure well- No GI or general complaints Reviewed procedure report, path and recommendations No N/V/ D- fever or chills PFSH Medical History (Updated 02/18/23 @ 10:08 by Lexie Medina PA-C) Insomnia PTSD (post-traumatic stress disorder) Anxiety Type 2 diabetes mellitus Surgical History Hx of colonoscopy History of incision and drainage H/O circumcision Family History Father HTN (hypertension) Prostate atrophy Mother Arthritis Thyroid disease Brother Diabetes 1.5, managed as type 1 Son Diabetes 1.5, managed as type 1 Daughter Arthritis Paternal Grandfather Heart attack Paternal Uncle Heart attack Maternal Grandfather Heart attack Social History Housing: House Alcohol intake: current Alcohol intake frequency: holidays/special occasions only Patient Tobacco Use Status: Former Tobacco user e-Cigarette/Vaping Use: Currently Using Second Hand Smoke Exposure: No service: Yes Current occupational status: retired Current occupation: retired Cognitive needs: No Hearing needs: No Vision needs: No Review of Systems Const All systems reviewed & are unremarkable except as noted in HPI and below Physical Exam Const General: cooperative, healthy appearing, comfortable, no acute distress and well developed Orientation/consciousness: patient oriented x3 Limitations: no limitations Resp Effort & Inspection: normal respiratory effort and able to speak in complete sentences Neuro General: patient oriented x3 Psych Appearance: grossly normal and well kempt Mental Status: mental status grossly normal Speech and movement: Normal speech and movement present and Clear speech present Affect: normal affect Attitude: cooperative Thought process: Normal thought process present Thought content: Normal thought content present Insight: Good insight present (Psych) Judgement: Good judgement present (Psych) Results Reviewed Results Reviewed: Colonoscopy Findings: One small polyps removed Moderate diverticulosis seen in the sigmoid colon Moderate hemorrhoids on retroflexed exam. Plan: Await pathology results Patient has an appointment on 02/18/23 in the GI Clinic with EDUARDA Klein. Repeat Colonoscopy interval based on path results - in 5 years if polyps are adenomatous and 10 years if polyps are hyperplastic. Above findings were reviewed with the patient and colon polyps and diverticulosis handouts were given in the discharge area me: Ramses Lara Age/Sex: 47/M Attending: Marisa Frank MD : 1975 Submitted by: Marisa Frank MD Copies to: Wm Valentine MR #: [id number] Status: [facility] Collected: 02/04/23 Location: [facility] Received: 02/04/23 Diagnosis Colon, transverse, polypectomy: Clinically polypoid colonic mucosa noted; negative for a hyperplastic or neoplastic process. Clinical History Pre-Op Dx: Screening Post-Op Dx: Diverticulosis, hemorrhoids, colon polyps Microscopic Description Microscopic sections reviewed. Material Received Transverse colon polyp Gross Description Received in formalin labeled ?transverse colon polyp? is a 1.3 x 0.2 x 0.15 cm glistening, semitranslucent, thin and delicate, martel-pink rectangular fragment of mucosa which is submitted in toto in a single cassette labeled A. CEDS Copies To Wm Valentine [facility] [address] [place] [id number] Marisa Frank MD [address] [place] [address] [address] [place] [address] NOTE: Unless otherwise stated, all tissue is formalin-fixed and paraffin- embedded. Some or all of the immunohistochemical tests reported herein may have been developed and their performance characteristics determined by [facility]. They have not been cleared or approved by the U.S. Food and Drug Administration (FDA). However, the FDA has determined that such clearance or approval is not necessary. This laboratory is certified under the Clinical Laboratory Improvement Amendments of 1988 (CLIA) as qualified to perform high complexity clinical laboratory testing. Patient: Ramses Lara Age/Sex: 47/M MR#: [id number] Page 1 of 2 Assessment & Plan Assessment & Plan (1) Colon polyps: Comment: Very pleasant- present- Status: REG SD Collected: 02/04/23 Location: [facility] Received: 02/04/23 Diagnosis Colon, transverse, polypectomy: Clinically polypoid colonic mucosa noted; negative for a hyperplastic or neoplastic process. Clinical History Pre-Op Dx: Screening Post-Op Dx: Diverticulosis, hemorrhoids, colon polyps Code(s): K63.5 - Polyp of colon (2) Diverticulosis of colon: Code(s): K57.30 - Diverticulosis of large intestine without perforation or abscess without bleeding Plan: Diverticulosis/diverticulitis er protocol Maintain high-fiber diet (3) Hemorrhoids: Code(s): K64.9 - Unspecified hemorrhoids Plan: Avoid straining Plan Diverticulosis/diverticulitis er protocol Maintain high-fiber Patient Instructions: Diverticulosis/diverticulitis er protocol Maintain high-fiber diet avoid straining Repeat asymptomatic colonoscopy- 10 years Coding Level of Care Code Est Pt Level 3 (00307) Diagnoses Colon polyps K63.5 Diverticulosis of colon K57.30 Hemorrhoids K64.9 Time Spent (min) 20 Comment present
[2023-02-18 09:48] VITALS: BP 137/68; PULSE 87; BMI 34.4
== END 2023-02-18 10:39 | disposition home or self-care (01) ==
PROVIDERS: PCP Nurse Practitioner Family; Visit Provider Physician Assistant
DX: K63.5 Polyp of colon (principal); K57.30 Diverticulosis of large intestine without perforation or abscess without bleeding; K64.9 Unspecified hemorrhoids
CPT/HCPCS: 99213

== ENCOUNTER → 2023-02-18 09:34 | Outpatient (BNVA) | payer OTHER, SELFPAY | PROVIDERS: PCP Nurse Practitioner Family; Visit Provider Physician Assistant | DX: K63.5 Polyp of colon (principal); K57.30 Diverticulosis of large intestine without perforation or abscess without bleeding; K64.9 Unspecified hemorrhoids | CPT/HCPCS: 99212 ==

== ENCOUNTER 2023-08-07 15:53 | Outpatient (AMB) | payer OTHER, SELFPAY ==
--- NOTE | 2023-08-07 15:59 | A.OFFPC_ITS ---
Vital Signs 08/07/23 16:03 Height 5 ft 2 in Weight 194 lb BMI 35.5 BP 122/80 Blood Pressure Location Lt brachial Position Sitting Pulse 94 Pulse Source Pulse Oximeter Pulse Oximetry (%) 98 Oxygen Delivery Method Room Air Intake Visit Reasons: Annual PE Intake Note: Patient here for physical exam. pt would like to address diabetes issues. Allergies naproxen [NAPROXEN] Allergy (Severe, Verified 08/07/23 16:43) LIPS SWELL, Oral hives prednisone [PREDNISONE] Allergy (Severe, Verified 08/07/23 16:43) LIPS SWELL, Lip swelling, skin breaking Medication List - Last Reconciled 08/07/23 by Wm Valentine, IT INSTRUCTOR- bupropion HCl XL 300 mg PO QAM flash glucose scanning reader (FreeStyle Job 14 Day Atwater) bid testing flash glucose sensor (FreeStyle Job 14 Day Sensor kit) BID testing FreeStyle Job 2 Atwater (flash glucose scanning reader) TID testing NS FreeStyle Job 2 Sensor (flash glucose sensor) TID testing NS insulin degludec (Tresiba FlexTouch U-100 insulin) 48 units subcut BEDTIME ketoconazole 2% 1 appl topical BID 14 days losartan 25 mg PO DAILY metformin 1,000 mg PO BID 90 days pen needle, diabetic (BD Ultra-Fine Mini Pen Needle) As directed rosuvastatin 10 mg PO DAILY 90 days semaglutide (Ozempic) 1 mg (0.75 mL) subcut QWEEK Tobacco use date assessed: 08/07/23 Dental Screening Dental Screen Date: 08/07/23 Did you have a dental visit in the last 12 months?: Yes Did you have a dental problem in the last 6 months where you did not have access to dental care?: No Was dental information given to patient?: Patient has dentist HPI Annual PE HPI Details Pt is here for a PE. Will order labs. Colon screen is up to date. Due for PSA in the near future, will order. Denies dribbling with urination, weak stream, and frequent nocturia. Pt is a diabetic, on a statin. A1C in office today is 9.4. Due for microalbumin. Denies polyuria, polydipsia, and neuropathy. Pt denies any signs and symptoms of hypoglycemia and does know how to correct it. Pt has been off ozempic for at least one month due to insurance issues. Will resend ozempic. He has been taking 48 units of tresiba, will have him increase this to 55 units for now. May consider SGLT inhibitor if unable to get ozempic. Pt is interested in a sensor, will send. Will start low-dose ARB. [facility] Medical History (Updated 08/07/23 @ 17:04 by LAKIA Rae) Insomnia PTSD (post-traumatic stress disorder) Anxiety Type 2 diabetes mellitus Surgical History Hx of colonoscopy History of incision and drainage H/O circumcision Family History Father HTN (hypertension) Prostate atrophy Mother Arthritis Thyroid disease Brother Diabetes 1.5, managed as type 1 Son Diabetes 1.5, managed as type 1 Daughter Arthritis Paternal Grandfather Heart attack Paternal Uncle Heart attack Maternal Grandfather Heart attack Social History Housing: House Alcohol intake: current Alcohol intake frequency: holidays/special occasions only Patient Tobacco Use Status: Former Tobacco user e-Cigarette/Vaping Use: Currently Using Second Hand Smoke Exposure: No service: Yes Current occupational status: retired Current occupation: retired Cognitive needs: No Hearing needs: No Vision needs: No Questionnaire PHQ-9 Over the last 2 weeks, how often have you been bothered by any of the following problems? [id number] - PHQ-9 Billing: Patient declined-do not bill Source: Developed by Drs. Shiraz Acevedo, Nilda Zimmerman, Orestes Colby and colleagues, with an educational magdy from [employer]. Thrive Questionnaire Date Thrive assessed: 12/07/21 STEPHY-7 AMB Questionnaire STEPHY-7 Date STEPHY - 7 assessed: 12/07/21 Source: Developed by Drs. Shiraz Acevedo, Nilda Zimmerman, Orestes Colby and colleagues, with an educational magdy from [employer]. STEPHY-7 Assessment Billing STEPHY-7 Assessment Tool: pt declined-do not bill Review of Systems Const Denies chills and Denies fever(s) Eyes Denies blurry vision ENT Denies vertigo, Denies dizziness and Denies sore throat Card Denies chest pain at rest, Denies chest pain with activity, Denies diaphoresis, Denies dyspnea and Denies dyspnea on exertion Resp Denies cough, Denies dyspnea, Denies dyspnea on exertion and Denies wheezing GI Denies abdominal pain, Denies melena, Denies hematochezia, Denies constipation, Denies diarrhea and Denies loose stools Denies hematuria Musc Denies numbness and Denies tingling Skin/Breast Denies lesions Neuro Denies vertigo, Denies dizziness, Denies numbness and Denies tingling Psych Denies anxiety, Denies depression, Denies homicidal ideation, Denies suicidal ideation and Denies other (substance abuse) Aller/Immun Denies wheezing Physical exam (Primary Care) Vital Signs: Last Vital Signs Pulse 94 08/07/23 16:03 BP 122/80 08/07/23 16:03 Pulse Ox 98 08/07/23 16:03 Oxygen Delivery Method Room Air 08/07/23 16:03 BMI result Body Mass Index 35.5 Tobacco/Smoking Status: Tobacco use Status Tobacco use date assessed 08/07/23 08/07/23 16:09 Patient Tobacco Use Status Former Tobacco user 08/07/23 15:59 e-Cigarette/Vaping Use Currently Using 08/07/23 15:59 Thrive Assessment: Date of Thrive Assessment Date Thrive assessed 12/07/21 08/07/23 15:59 Const General: cooperative Nutritional Appearance: obese Orientation/consciousness: patient oriented x3 HENMT Head: Yes normal to inspection, Yes normocephalic and Yes atraumatic Ears: TM's normal bilaterally Eyes General: appearance normal, both eyes and all related structures Alignment and Position: alignment normal and position normal Neck Neck: Yes normal visual inspection and Yes no lymphadenopathy Thyroid: Thyroid normal Resp Effort & Inspection: normal respiratory effort Auscultation: clear to auscultation bilaterally Cardio Rate: regular rate Rhythm: regular rhythm Heart sounds: S1 normal heart sound present, S2 normal heart sound present and no murmurs GI Palpation (GI): Soft to palpation and nontender Auscultation: normal bowel sounds Male General Exam: Yes normal external exam Penis: normal penis Scrotum: scrotum normal, testes descended bilaterally and no inguinal hernias Testes: no testicular mass Skin Rashes: no rashes Neuro General: patient oriented x3, moves all extremities, no focal motor deficits and deep tendon reflexes 2+ bilaterally Romberg Test: Negative Psych Appearance: grossly normal Mental Status: mental status grossly normal Speech and movement: Normal speech and movement present Affect: normal affect Attitude: cooperative Thought process: Normal thought process present Thought content: Normal thought content present Insight: Good insight present (Psych) Judgement: Good judgement present (Psych) Results AMB Hemoglobin A1c AMB Hemoglobin A1c 9.4 % Last Edit by ANTONY Oliva on 08/07/23 16 :44 Assessment and Plan Assessment & Plan (1) Screening for prostate cancer: Code(s): Z12.5 - Encounter for screening for malignant neoplasm of prostate Plan: PSA ordered Plan The patient agreed to the use of a medical services assistant for this encounter. Scribed for DENIS Arredondo-BC by Bre Sue medical services assistant, on 08/07/2023 at 16:40 EST. Orders: Orders AMB Hemoglobin A1c Today Z13.9 - Encounter for screening, unspecified Prostate Specific Antigen Scr Today Z12.5 - Encounter for screening for malignant neoplasm of prostate Medications: New losartan 25 mg PO DAILY 90 tabs 0RF losartan 25 mg PO DAILY 90 tabs 0RF Changed From insulin degludec (Tresiba FlexTouch U-100 insulin) 40 units (0.4 mL) subcut BEDTIME 45 mL 3RF To insulin degludec (Tresiba FlexTouch U-100 insulin) 48 units subcut BEDTIME From FreeStyle Job 2 [place]water (flash glucose scanning reader) TID testing 1 ea 0RF NS E11.9 - Type 2 diabetes mellitus without complications To FreeStyle Job 2 [place] (flash glucose scanning reader) TID testing, KIT 1 ea 0RF NS E11.9 - Type 2 diabetes mellitus without complications Refilled FreeStyle Job 2 [place] (flash glucose scanning reader) TID testing 1 ea 0RF NS E11.9 - Type 2 diabetes mellitus without complications semaglutide (Ozempic) 1 mg (0.75 mL) subcut QWEEK 3 mL 0RF semaglutide (Ozempic) 1 mg (0.75 mL) subcut QWEEK 3 mL 0RF FreeStyle Job 2 Sensor (flash glucose sensor) TID testing 1 ea 0RF NS E11.9 - Type 2 diabetes mellitus without complications FreeStyle Job 2 Sensor (flash glucose sensor) TID testing 1 ea 0RF NS E11.9 - Type 2 diabetes mellitus without complications Coding Level of Care Code Est Pt Prev Care 40-64y(69574) Diagnoses Screening for prostate cancer Z12.5
[2023-08-07 16:03] VITALS: BP 122/80; PULSE 94; O2SAT 98; BMI 35.5
== END 2023-08-07 17:40 | disposition home or self-care (01) ==
PROVIDERS: PCP Nurse Practitioner Family; Visit Provider Nurse Practitioner Family
DX: Z00.00 Encounter for general adult medical examination without abnormal findings (principal); E11.9 Type 2 diabetes mellitus without complications
CPT/HCPCS: 83036; 99396

== ENCOUNTER 2023-08-08 06:07 | Outpatient (REF) | payer OTHER, SELFPAY ==
[2023-08-08 10:26] LABS: MANUAL DIFF FLAG NO
[2023-08-08 10:37] LABS: Appearance Urine Clear; Color Urine Yellow; Glucose Urine UA 500 mg/dL (Negative); Leukocyte Esterase Urine Negative (Negative); Nitrite Urine Negative (Negative); Specific Gravity - Urine 1.025 (1.005-1.025); Urine Blood Negative (Negative); Urine Ketones Negative (Negative); Urine Protein Negative (Neg-Trace)
[2023-08-08 10:39] LABS: Basophils Absolute Auto 0.1 X10*3/uL (0.0-0.2); Basophils Percent Auto 1.7 % (0-2); Eosinophils Percent Auto 13.3 % (0-4); Hematocrit 48.1 % (42.0-52.0); Hemoglobin 16.7 g/dl (14.0-18.0); Imm Gran Abs Auto 0.02 X10*3/uL (0.00-0.03); Imm Gran Pct Auto 0.3 % (0.0-0.4); Lymphocytes Absolute Auto 1.5 X10*3/uL (1.2-4.9); Lymphocytes Percent Auto 19.8 % (20-40); Mean Corpuscular HGB Conc 34.7 g/dl (31.0-36.0); Mean Corpuscular Hemoglobin 29.9 pg (27.0-33.0); Mean Corpuscular Volume 86.2 fL (80.0-98.0); Mean Platelet Volume 10.2 fL (9.4-12.4); Monocytes Absolute Auto 0.5 X10*3/uL (0.1-1.2); Monocytes Percent Auto 7.1 % (2-11); Neutrophils Absolute Auto 4.3 x10*3/uL (2.0-8.3); Neutrophils Percent Auto 57.8 % (45-73); Platelet Count 241 X10*3/uL (160-400); Red Blood Count 5.58 X10*6/uL (4.60-5.80); Red Cell Distribution Width 12.6 % (11.0-16.0); White Blood Count 7.4 X10*3/uL (4.8-10.8)
[2023-08-08 11:00] LABS: Alanine Aminotransferase 26 U/L (0-40); Albumin Level 4.2 g/dL (3.5-5.0); Alkaline Phosphatase 77 U/L (39-117); Anion Gap 8 (12-20); Aspartate Amino Transferase 20 U/L (5-37); Bilirubin Total 0.6 mg/dL (0.0-1.0); Blood Urea Nitrogen 14 mg/dL (9-16); Calcium 9.3 mg/dL (8.4-10.2); Carbon Dioxide 31 mmol/L (22-29); Chloride 103 mmol/L (96-108); Cholesterol 93 mg/dL (<200); Estimated Glomerular Filt Rate > 60; Glucose Fasting 188 mg/dL (60-99); HDL Cholesterol 29 mg/dL (>40); LDL Cholesterol Calculated 33 mg/dL (<100); Potassium 3.8 mmol/L (3.3-5.1); Sodium 138 mmol/L (135-145); Total Protein 6.9 g/dL (6.5-8.0); Triglycerides 157 mg/dL (<150)
[2023-08-08 11:01] LABS: TSH reflex Free T4 2.53 uIU/mL (0.32-4.0)
[2023-08-08 11:02] LABS: Prostate Specific Antigen Scr 0.41 ng/mL (<0.05-4.0)
[2023-08-08 11:31] LABS: Creatinine Urine 212.38 mg/dL
== END 2023-08-08 06:08 | disposition home or self-care (01) ==
LOC: HO.HMGCLDS 06:07
PROVIDERS: PCP Nurse Practitioner Family; Visit Provider Nurse Practitioner Family
DX: E11.9 Type 2 diabetes mellitus without complications (principal); I10 Essential (primary) hypertension; Z12.5 Encounter for screening for malignant neoplasm of prostate
CPT/HCPCS: 36415; 80053; 80061; 81003; 82043; 82570; 84153; 84443; 85025

== ENCOUNTER 2023-11-06 15:56 | Outpatient (AMB) | payer OTHER, SELFPAY ==
--- NOTE | 2023-11-06 16:01 | A.OFFPC_ITS ---
Vital Signs 11/06/23 16:02 Height 5 ft 2 in Weight 192 lb BMI 35.1 BP 124/80 Blood Pressure Location Rt brachial Position Sitting Pulse 94 Pulse Source Pulse Oximeter Pulse Oximetry (%) 98 Oxygen Delivery Method Room Air Intake Visit Reasons: Rescheduled from 11/04 Allergies naproxen [NAPROXEN] Allergy (Severe, Verified 11/06/23 16:15) LIPS SWELL, Oral hives prednisone [PREDNISONE] Allergy (Severe, Verified 11/06/23 16:15) LIPS SWELL, Lip swelling, skin breaking Medication List - Last Reconciled 11/06/23 by Wm Valentine, AMMONIA PRINT OPERATOR- bupropion HCl XL 300 mg PO QAM flash glucose scanning reader (FreeStyle Job 14 Day [place]) bid testing flash glucose sensor (FreeStyle Job 14 Day Sensor kit) BID testing FreeStyle Job 2 [place] (flash glucose scanning reader) TID testing, KIT NS FreeStyle Job 2 Sensor (flash glucose sensor) TID testing NS insulin degludec (Tresiba FlexTouch U-100 insulin) 50 units (0.5 mL) subcut BEDTIME ketoconazole 2% 1 appl topical BID 14 days losartan 25 mg PO DAILY metformin 1,000 mg PO BID 90 days pen needle, diabetic (BD Ultra-Fine Mini Pen Needle) As directed rosuvastatin 10 mg PO DAILY 90 days tirzepatide (Mounjaro) 2.5 mg (0.5 mL) subcut QWEEK 90 days Tobacco use date assessed: 08/07/23 Dental Screening Dental Screen Date: 08/07/23 HPI Rescheduled from 11/04 HPI Details Pt is a diabetic, on an ARB and a statin. A1C in office today is 10.1. Microalbumin is up to date. Denies polyuria, polydipsia, and neuropathy. Pt denies any signs and symptoms of hypoglycemia and does know how to correct it. Pt reports that his blood sugar has been elevated. Pt's insurance has not been covering GLP-1 agonist. Will resend mounjaro. Will increase tresiba from 50 to 56 units. Pt will contact me in a week with how his blood sugar is doing. I believe pt needs to be on a glucose sensor due to uncontrolled diabetes and A1C of 10.1. Eye exam is up to date. REPLACED BY [facility] Medical History Insomnia PTSD (post-traumatic stress disorder) Anxiety Type 2 diabetes mellitus Surgical History Hx of colonoscopy History of incision and drainage H/O circumcision Family History Father HTN (hypertension) Prostate atrophy Mother Arthritis Thyroid disease Brother Diabetes 1.5, managed as type 1 Son Diabetes 1.5, managed as type 1 Daughter Arthritis Paternal Grandfather Heart attack Paternal Uncle Heart attack Maternal Grandfather Heart attack Social History Housing: House Alcohol intake: current Alcohol intake frequency: holidays/special occasions only Patient Tobacco Use Status: Former Tobacco user e-Cigarette/Vaping Use: Currently Using Second Hand Smoke Exposure: No service: Yes Current occupational status: retired Current occupation: retired [employer] Cognitive needs: No Hearing needs: No Vision needs: No Questionnaire PHQ-9 Over the last 2 weeks, how often have you been bothered by any of the following problems? 1. Little interest or pleasure in doing things: not at all 2. Feeling down, depressed, or hopeless: not at all 3. Trouble falling or staying asleep, or sleeping too much: not at all 4. Feeling tired or having little energy: not at all 5. Poor appetite or overeating: not at all 6. Feeling bad about yourself - or that you are a failure or have let yourself or your family down: not at all 7. Trouble concentrating on things, such as reading the newspaper or watching television: not at all 8. Moving or speaking so slowly that other people could have noticed. Or the opposite - being so fidgety or restless that you have been moving around a lot more than usual: not at all 9. Thoughts that you would be better off or of hurting yourself in some way: not at all Total score: 0 Depression Screening Interpretation: Negative Depression Screening Done: Yes 88539 - PHQ-9 Billing: Yes Source: Developed by Nilda Benitez.W. Erasmo, Orestes Colby and colleagues, with an educational magdy from [employer]. Thrive Questionnaire Date Thrive assessed: 11/06/23 I am a: Patient What is your living situation today?: I have a steady place to live Within the past 12 months, did the food you bought not last and you didn't have the money to get more?: Never true Within the past 12 months, did you worry whether your food would run out before you got money to buy more?: Never true Do you have trouble paying for medicines?: No Do you have trouble getting transportation to medical appointments?: No Do you have trouble paying your heating and electricity bill?: No Do you have trouble taking care of your child, family member or friend?: No Do you have trouble with day-to-day activities such as bathing, preparing meals, shopping, managing finances, etc.?: No Are you currently unemployed and looking for a job?: No Are you interested in more education?: No Please select the resources that you would like help with: Housing/Senior Care Currently or been in a relationship where the following occur: No concerns reported THRIVE Score: 0 AUDIT C Alcohol Use Questionnaire (AUDIT-C) 1. How often do you have a drink containing alcohol?: Monthly or less 2. How many drinks containing alcohol do you have on a typical day when you are drinking?: 3 or 4 3. How often do you have six or more drinks on one occasion?: Less than monthly Total Score: 3 Score Reviewed/Action Taken: Yes STEPHY-7 AMB Questionnaire STEPHY-7 Date STEPHY - 7 assessed: 11/06/23 Feeling nervous, anxious, or on edge: 0 = Not at all Not being able to stop or control worryin = Not at all Worrying too much about different things: 0 = Not at all Trouble relaxin = Not at all Being so restless that it is hard to sit still: 0 = Not at all Becoming easily annoyed or irritable: 0 = Not at all Feeling afraid as if something awful might happen: 0 = Not at all Total STEPHY-7 score (0-4 normal; 5-9 mild; 10-14 moderate; 15-21 severe): 0 Source: Developed by Drs. Shiraz Acevedo, Nilda Zimmerman, Orestes Colby and colleagues, with an educational magdy from [employer]. STEPHY-7 Assessment Billing STEPHY-7 Assessment Tool: STEPHY-7 Assessment 35049 Review of Systems Const Reports as per HPI Physical exam (Primary Care) Vital Signs: Last Vital Signs Pulse 94 11/06/23 16:02 BP 124/80 11/06/23 16:02 Pulse Ox 98 11/06/23 16:02 Oxygen Delivery Method Room Air 11/06/23 16:02 BMI result Body Mass Index 35.1 Tobacco/Smoking Status: Tobacco use Status Tobacco use date assessed 08/07/23 11/06/23 16:05 Patient Tobacco Use Status Former Tobacco user 11/06/23 16:05 e-Cigarette/Vaping Use Currently Using 11/06/23 16:05 PHQ-9: PHQ-9 Score PHQ-9: Total score 0 11/06/23 16:23 Depression Screening Interpretation: Negative Thrive Assessment: Date of Thrive Assessment Date Thrive assessed 11/06/23 11/06/23 16:14 Currently or been in a relationship where the following occur: No concerns reported Const General: cooperative Nutritional Appearance: obese Orientation/consciousness: patient oriented x3 Resp Effort & Inspection: normal respiratory effort Auscultation: clear to auscultation bilaterally Cardio Rate: regular rate Rhythm: regular rhythm Heart sounds: S1 normal heart sound present and S2 normal heart sound present Neuro General: patient oriented x3 Extrem Other: bilat feet: + sensation with use of monofilament, feet intact Psych Appearance: grossly normal Mental Status: mental status grossly normal Speech and movement: Normal speech and movement present Affect: normal affect Attitude: cooperative Thought process: Normal thought process present Thought content: Normal thought content present Insight: Good insight present (Psych) Judgement: Good judgement present (Psych) Results AMB Hemoglobin A1c AMB Hemoglobin A1c 10.1 % Last Edit by ANTONY Oliva on 11/06/23 16:23 Results Reviewed Results Reviewed: Laboratory Last Values Hgb A1c (Clinic) 10.1 % (4.0-6.0) H 11/06/23 16:23 Assessment and Plan Assessment & Plan (1) Diabetes: Code(s): E11.9 - Type 2 diabetes mellitus without complications Plan: uncontrolled. pt needs the senor kit and GLP-1 agonist Plan The patient agreed to the use of a medical care administrator for this encounter. Scribed for Wm Valentine, AMMONIA PRINT OPERATOR-BC by Bre Sue medical care administrator, on 11/06/2023 at 16:15 EST. Orders: Orders Complete Blood Count Auto Diff Today E11.9 - Type 2 diabetes mellitus without complications UA CC w/rflx Micro + Cult Today E11.9 - Type 2 diabetes mellitus without complications AMB Hemoglobin A1c Today Z13.9 - Encounter for screening, unspecified Comprehensive [place]. Panel Fast Today E11.9 - Type 2 diabetes mellitus without complications TSH reflex Free T4 Today E11.9 - Type 2 diabetes mellitus without complications Lipid Panel Today E11.9 - Type 2 diabetes mellitus without complications Medications: Changed From insulin degludec (Tresiba FlexTouch U-100 insulin) 50 units (0.5 mL) subcut BEDTIME 15 mL 0RF To insulin degludec (Tresiba FlexTouch U-100 insulin) 56 units (0.56 mL) subcut BEDTIME 45 mL 0RF Refilled flash glucose scanning reader (FreeStyle Job 14 Day [place]) bid testing 1 ea 3RF diabetes E11.9 - Type 2 diabetes mellitus without complications flash glucose sensor (FreeStyle Job 14 Day Sensor kit) BID testing 1 ea 3RF diabetes E11.9 - Type 2 diabetes mellitus without complications Coding Level of Care Code Est Pt Level 3 (97062) Diagnoses Diabetes E11.9 Additional Codes STEPHY-7 Assessment Billing - STEPHY-7 Assessment Tool: STEPHY-7 Assessment 88857 ([id number])
[2023-11-06 16:02] VITALS: BP 124/80; PULSE 94; O2SAT 98; BMI 35.1
== END 2023-11-06 16:32 | disposition home or self-care (01) ==
PROVIDERS: PCP Nurse Practitioner Family; Visit Provider Nurse Practitioner Family
DX: E11.9 Type 2 diabetes mellitus without complications (principal)
CPT/HCPCS: 83036; 99213

== ENCOUNTER 2024-01-08 15:17 | Outpatient (AMB) | payer OTHER, SELFPAY ==
--- NOTE | 2024-01-08 15:21 | A.OFFVIS_ITS ---
Vital Signs 01/08/24 15:26 Height 5 ft 2 in Weight 189 lb 9.561 oz BMI 34.7 Intake Visit Reasons: DM/LVM Intake Note: NEW Patient presents today to establish treatment for Type 2 Diabetes Mellitus: Last Diabetic eye exam was on: DUE Last Podiatry exam was on: Does not see a Anatomical Embalmer Most recent HbA1c: 10.1%, 11/06/2023 Random Glucose- 107mg/dL, Today Silk Screen Etcher Required: No Accompanied by: Self / Same As Patient Allergies naproxen [NAPROXEN] Allergy (Severe, Verified 01/08/24 15:22) LIPS SWELL, Oral hives prednisone [PREDNISONE] Allergy (Severe, Verified 01/08/24 15:22) LIPS SWELL, Lip swelling, skin breaking Medication List - Last Reconciled 01/08/24 by Dasia Rey MD bupropion HCl XL 300 mg PO QAM buspirone 5 mg PO BID 30 days flash glucose scanning reader (FreeStyle Job 14 Day [place]) bid testing flash glucose sensor (FreeStyle Job 14 Day Sensor kit) BID testing FreeStyle Job 2 [place] (flash glucose scanning reader) TID testing, KIT NS FreeStyle Job 2 Sensor (flash glucose sensor) TID testing NS insulin degludec (Tresiba FlexTouch U-100 insulin) 40 units subcut BEDTIME ketoconazole 2% 1 appl topical BID 14 days losartan 25 mg PO DAILY metformin 1,000 mg PO BID 90 days pen needle, diabetic (BD Ultra-Fine Mini Pen Needle) As directed rosuvastatin 10 mg PO DAILY 90 days tirzepatide (Mounjaro) 2.5 mg (0.5 mL) subcut QWEEK 90 days HPI Comments Details: Ramses is a 48 year old male with a past medical history of IDDM presenting for diabetes Medical history: HTN, bifascicular heart block Diagnosed at 41. Was having polyuria, polydipsia. Current medication: Metformin 1000mg twice daily, mounjaro 2.5mg weekly, tresiba 40u bedtime A1C 10.1% 10/27/23 On losartan, crestor Family history of diabetes, thyroid Eye exam: UTD Denies neuropathy ROS CONSTITUTIONAL: Denies weight loss, fever and chills. HEENT: Denies changes in vision and hearing. RESPIRATORY: Denies SOB and cough. CV: Denies palpitations and CP GI: Denies abdominal pain, nausea, vomiting and diarrhea. : Denies dysuria and urinary frequency. MSK: Denies new myalgia and joint pain. SKIN: Denies rash and pruritus. NEUROLOGICAL: Denies headache PSYCHIATRIC: Denies recent changes in mood. PHYSICAL EXAM: GENERAL: Alert and oriented x 3. NAD EYES: EOMI. Anicteric. HENT: Moist mucous membranes. No scleral icterus. No cervical lymphadenopathy. LUNGS: Clear to auscultation bilaterally. CARDIOVASCULAR: Regular rate and rhythm. No murmur. No JVD. ABDOMEN: Soft, non-tender +bs EXTREMITIES: No edema. Non-tender. SKIN: No rashes or lesions. Warm. NEUROLOGIC: No focal neurological deficits. CN II-XII grossly intact PSYCHIATRIC: Cooperative. Appropriate mood and affect [facility] Medical History Insomnia PTSD (post-traumatic stress disorder) Anxiety Type 2 diabetes mellitus Surgical History Hx of colonoscopy History of incision and drainage H/O circumcision Family History Father HTN (hypertension) Prostate atrophy Mother Arthritis Thyroid disease Brother Diabetes 1.5, managed as type 1 Son Diabetes 1.5, managed as type 1 Daughter Arthritis Paternal Grandfather Heart attack Paternal Uncle Heart attack Maternal Grandfather Heart attack Social History Housing: House Alcohol intake: current Alcohol intake frequency: holidays/special occasions only Patient Tobacco Use Status: Former Tobacco user e-Cigarette/Vaping Use: Currently Using Second Hand Smoke Exposure: No service: Yes Current occupational status: retired Current occupation: retired Cognitive needs: No Hearing needs: No Vision needs: No Physical Exam Vital Signs: BMI result Body Mass Index 34.7 Results Reviewed Results Reviewed: Laboratory Last Values Glucose (Clinic) 107 mg/dL (60-115) 01/08/24 15:34 Assessment & Plan Assessment & Plan (1) Type 2 diabetes mellitus: Code(s): E11.9 - Type 2 diabetes mellitus without complications Category: Medical Qualifiers: Diabetes mellitus complication status: with hyperglycemia Diabetes mellitus mcc insulin use: with mcc use Qualified Code(s): E11.65 - Type 2 diabetes mellitus with hyperglycemia; Z79.4 - equipment operator intermodal yard (current) use of insulin Plan: Uncontrolled Increase mounjaro to 5 weekly Increase tresiba to 56 units from 40 increasing by 4 units every few days. Follow up 2 weeks for review of readings Medications: New tirzepatide (Mounjaro) 5 mg (0.5 mL) subcut QWEEK 6 mL 3RF Dasia Rey MD E11.9 - Type 2 diabetes mellitus without complications Changed From insulin degludec 56 units (0.56 mL) subcut BEDTIME 45 mL 0RF To insulin degludec (Tresiba FlexTouch U-100 insulin) 40 units subcut BEDTIME Wm Valentine, [facility]- Discontinued tirzepatide Discontinued Reason: Doctor's Order 2.5 mg (0.5 mL) subcut QWEEK 90 days 6.5 mL 0RF Coding Level of Care Code Est Pt Level 4 (12639) Diagnoses Type 2 diabetes mellitus with hyperglycemia, with long-term current use of insulin E11.65; Z79.4 Diabetes mellitus complication status: with hyperglycemia Diabetes mellitus mcc insulin use: with mcc use
[2024-01-08 15:26] VITALS: BMI 34.7
[2024-01-08 15:51] LABS: Glucose, Whole Blood 107 mg/dL (60-115)
== END 2024-01-08 16:01 | disposition home or self-care (01) ==
PROVIDERS: PCP Nurse Practitioner Family; Visit Provider Internal Medicine
DX: E11.65 Type 2 diabetes mellitus with hyperglycemia (principal); Z79.4 Long term (current) use of insulin

== ENCOUNTER → 2024-01-08 15:17 | Outpatient (BNVA) | payer OTHER, SELFPAY | PROVIDERS: PCP Nurse Practitioner Family; Visit Provider Internal Medicine | DX: E11.65 Type 2 diabetes mellitus with hyperglycemia (principal); Z79.4 Long term (current) use of insulin | CPT/HCPCS: 82947; 99212 ==

== ENCOUNTER 2024-01-22 15:49 | Outpatient (AMB) | payer OTHER, SELFPAY ==
--- NOTE | 2024-01-22 15:54 | A.OFFVIS_ITS ---
Vital Signs 01/22/24 15:55 Height 5 ft 2 in Weight 189 lb 9.561 oz BMI 34.7 BP 126/74 Blood Pressure Location Rt brachial Position Sitting Pulse 107 H Pulse Source Pulse Oximeter Intake Visit Reasons: DM/LVM Intake Note: Patient presents today for a follow-up on Type 2 Diabetes Mellitus: Last Diabetic eye exam was on: DUE Last Podiatry exam was on: Does not see a Laboratory Worker Most recent HbA1c: 10.1%, 11/06/2023 Random Glucose- 118 mg/dL, Today Corporate Logistics Manager Required: No Accompanied by: Self / Same As Patient Allergies naproxen [NAPROXEN] Allergy (Severe, Verified 01/08/24 15:22) LIPS SWELL, Oral hives prednisone [PREDNISONE] Allergy (Severe, Verified 01/08/24 15:22) LIPS SWELL, Lip swelling, skin breaking HPI Comments Details: Ramses is a 48 year old male with a past medical history of IDDM presenting for diabetes Medical history: HTN, bifascicular heart block Diagnosed at 41. Was having polyuria, polydipsia. Current medication: Metformin 1000mg twice daily, mounjaro 5mg weekly, tresiba 35u bedtime A1C 10.1% 10/27/23 On losartan, [employer] sensor download, active 25%, no GMI. TGT 86%, low 1%, high 13% Family history of diabetes, thyroid Eye exam: UTD Denies neuropathy ROS CONSTITUTIONAL: Denies weight loss, fever and chills. HEENT: Denies changes in vision and hearing. RESPIRATORY: Denies SOB and cough. CV: Denies palpitations and CP GI: Denies abdominal pain, nausea, vomiting and diarrhea. : Denies dysuria and urinary frequency. MSK: Denies new myalgia and joint pain. SKIN: Denies rash and pruritus. NEUROLOGICAL: Denies headache PSYCHIATRIC: Denies recent changes in mood. PHYSICAL EXAM: GENERAL: Alert and oriented x 3. NAD EYES: EOMI. Anicteric. HENT: Moist mucous membranes. No scleral icterus. No cervical lymphadenopathy. LUNGS: Clear to auscultation bilaterally. CARDIOVASCULAR: Regular rate and rhythm. No murmur. No JVD. ABDOMEN: Soft, non-tender +bs EXTREMITIES: No edema. Non-tender. SKIN: No rashes or lesions. Warm. NEUROLOGIC: No focal neurological deficits. CN II-XII grossly intact PSYCHIATRIC: Cooperative. Appropriate mood and affect [facility] Medical History Insomnia PTSD (post-traumatic stress disorder) Anxiety Type 2 diabetes mellitus Surgical History Hx of colonoscopy History of incision and drainage H/O circumcision Family History Father HTN (hypertension) Prostate atrophy Mother Arthritis Thyroid disease Brother Diabetes 1.5, managed as type 1 Son Diabetes 1.5, managed as type 1 Daughter Arthritis Paternal Grandfather Heart attack Paternal Uncle Heart attack Maternal Grandfather Heart attack Social History Housing: House Alcohol intake: current Alcohol intake frequency: holidays/special occasions only Patient Tobacco Use Status: Former Tobacco user e-Cigarette/Vaping Use: Currently Using Second Hand Smoke Exposure: No service: Yes Current occupational status: retired Current occupation: retired Cognitive needs: No Hearing needs: No Vision needs: No Physical Exam Vital Signs: Last Vital Signs Pulse 107 H 01/22/24 15:55 BP 126/74 01/22/24 15:55 BMI result Body Mass Index 34.7 Results Reviewed Results Reviewed: Laboratory Last Values Glucose (Clinic) 118 mg/dL (60-115) H 01/22/24 15:59 Assessment & Plan Assessment & Plan (1) Type 2 diabetes mellitus: Code(s): E11.9 - Type 2 diabetes mellitus without complications Category: Medical Qualifiers: Diabetes mellitus complication status: with hyperglycemia Diabetes mellitus fdc insulin use: with fdc use Qualified Code(s): E11.65 - Type 2 diabetes mellitus with hyperglycemia; Z79.4 - snf (current) use of insulin Plan: Improving control. Advised to do A1C in two weeks when due CGM downloaded and reviewed Coding Level of Care Code Est Pt Level 4 (54259) Diagnoses Type 2 diabetes mellitus with hyperglycemia, with long-term current use of insulin E11.65; Z79.4 Diabetes mellitus complication status: with hyperglycemia Diabetes mellitus terminal supervisor insulin use: with terminal supervisor use
[2024-01-22 15:55] VITALS: BP 126/74; PULSE 107; BMI 34.7
[2024-01-22 16:09] LABS: Glucose, Whole Blood 118 mg/dL (60-115)
== END 2024-01-22 16:11 | disposition home or self-care (01) ==
PROVIDERS: PCP Nurse Practitioner Family; Visit Provider Internal Medicine
DX: E11.65 Type 2 diabetes mellitus with hyperglycemia (principal); Z79.4 Long term (current) use of insulin

== ENCOUNTER → 2024-01-22 15:49 | Outpatient (BNVA) | payer OTHER, SELFPAY | PROVIDERS: PCP Nurse Practitioner Family; Visit Provider Internal Medicine | DX: E11.65 Type 2 diabetes mellitus with hyperglycemia (principal); Z79.4 Long term (current) use of insulin | CPT/HCPCS: 82947; 99212 ==

== ENCOUNTER 2024-03-11 15:58 | Outpatient (AMB) | payer OTHER, SELFPAY ==
--- NOTE | 2024-03-11 15:59 | A.OFFVIS_ITS ---
Vital Signs 03/11/24 16:02 Height 5 ft 2 in Weight 187 lb 6.287 oz BMI 34.3 BP 120/80 Blood Pressure Location Rt brachial Position Sitting Pulse 102 H Pulse Source Pulse Oximeter Intake Visit Reasons: DM Intake Note: Patient presents today for a follow-up on Type 2 Diabetes Mellitus: Last Diabetic eye exam was on: DUE Last Podiatry exam was on: Does not see a Supervisor [employer] Most recent HbA1c: 6.2%, 03/11/2024 Random Glucose- 86 mg/dL, Today Mopper Required: No Accompanied by: Self / Same As Patient Allergies naproxen [NAPROXEN] Allergy (Severe, Verified 03/11/24 16:09) LIPS SWELL, Oral hives prednisone [PREDNISONE] Allergy (Severe, Verified 03/11/24 16:09) LIPS SWELL, Lip swelling, skin breaking HPI Comments Details: Ramses is a 48 year old male with a past medical history of IDDM presenting for diabetes Medical history: HTN, bifascicular heart block Diagnosed at 41. Was having polyuria, polydipsia. Current medication: Metformin 1000mg twice daily, mounjaro 5mg weekly, tresiba 35u bedtime A1C 10.1% 10/27/23 On losartan, crestor Job sensor download, GMI 6.1%. TGT 90%, low 3%, high 7% Family history of diabetes, thyroid Eye exam: UTD Denies neuropathy ROS CONSTITUTIONAL: Denies weight loss, fever and chills. HEENT: Denies changes in vision and hearing. RESPIRATORY: Denies SOB and cough. CV: Denies palpitations and CP GI: Denies abdominal pain, nausea, vomiting and diarrhea. : Denies dysuria and urinary frequency. MSK: Denies new myalgia and joint pain. SKIN: Denies rash and pruritus. NEUROLOGICAL: Denies headache PSYCHIATRIC: Denies recent changes in mood. PHYSICAL EXAM: GENERAL: Alert and oriented x 3. NAD EYES: EOMI. Anicteric. HENT: Moist mucous membranes. No scleral icterus. No cervical lymphadenopathy. LUNGS: Clear to auscultation bilaterally. CARDIOVASCULAR: Regular rate and rhythm. No murmur. No JVD. ABDOMEN: Soft, non-tender +bs EXTREMITIES: No edema. Non-tender. SKIN: No rashes or lesions. Warm. NEUROLOGIC: No focal neurological deficits. CN II-XII grossly intact PSYCHIATRIC: Cooperative. Appropriate mood and affect [facility] Medical History Insomnia PTSD (post-traumatic stress disorder) Anxiety Type 2 diabetes mellitus Surgical History Hx of colonoscopy History of incision and drainage H/O circumcision Family History Father HTN (hypertension) Prostate atrophy Mother Arthritis Thyroid disease Brother Diabetes 1.5, managed as type 1 Son Diabetes 1.5, managed as type 1 Daughter Arthritis Paternal Grandfather Heart attack Paternal Uncle Heart attack Maternal Grandfather Heart attack Social History Housing: House Alcohol intake: current Alcohol intake frequency: holidays/special occasions only Patient Tobacco Use Status: Former Tobacco user e-Cigarette/Vaping Use: Currently Using Second Hand Smoke Exposure: No service: Yes Current occupational status: retired Current occupation: retired Cognitive needs: No Hearing needs: No Vision needs: No Physical Exam Vital Signs: Last Vital Signs Pulse 102 H 03/11/24 16:02 BP 120/80 03/11/24 16:02 BMI result Body Mass Index 34.3 Results AMB Hemoglobin A1c AMB Hemoglobin A1c 6.2 % Last Edit by MIGUEL Chavis on 03/11/24 16:15 Results Reviewed Results Reviewed: Laboratory Last Values Glucose (Clinic) 86 mg/dL (60-115) 03/11/24 16:07 Hgb A1c (Clinic) 6.2 % (4.0-6.0) H 03/11/24 16:00 Assessment & Plan Assessment & Plan (1) Type 2 diabetes mellitus: Code(s): E11.9 - Type 2 diabetes mellitus without complications Category: Medical Qualifiers: Diabetes mellitus complication status: with hyperglycemia Diabetes mellitus custodial insulin use: with terminal superintendent use Qualified Code(s): E11.65 - Type 2 diabetes mellitus with hyperglycemia; Z79.4 - terminal superintendent (current) use of insulin Plan: Controlled. Taking 35 units insulin-decrease to 30 units due to hypoglycemia. Follow up 3 months (2) HTN (hypertension): Code(s): I10 - Essential (primary) hypertension Category: Medical Qualifiers: Hypertension type: primary hypertension Qualified Code(s): I10 - Essential (primary) hypertension Plan: Controlled on current medication Orders: Orders AMB Hemoglobin A1c 03/11/24 E11.65 - Type 2 diabetes mellitus with hyperglycemia, Z79.4 - terminal superintendent (current) use of insulin Medications: Changed From insulin degludec (Tresiba FlexTouch U-100 insulin) 56 units (0.56 mL) subcut BEDTIME 45 mL 3RF To insulin degludec (Tresiba FlexTouch U-100 insulin) 30 units (0.3 mL) subcut BEDTIME 45 mL 3RF Coding Level of Care Code Est Pt Level 4 (14529) Diagnoses Type 2 diabetes mellitus with hyperglycemia, with long-term current use of insulin E11.65; Z79.4 Diabetes mellitus complication status: with hyperglycemia Diabetes mellitus custodial insulin use: with terminal superintendent use Primary hypertension I10 Hypertension type: primary hypertension
[2024-03-11 16:02] VITALS: BP 120/80; PULSE 102; BMI 34.3
[2024-03-11 16:11] LABS: Glucose, Whole Blood 86 mg/dL (60-115)
== END 2024-03-11 16:18 | disposition home or self-care (01) ==
PROVIDERS: PCP Nurse Practitioner Family; Visit Provider Internal Medicine
DX: E11.65 Type 2 diabetes mellitus with hyperglycemia (principal); Z79.4 Long term (current) use of insulin; I10 Essential (primary) hypertension

== ENCOUNTER → 2024-03-11 15:58 | Outpatient (BNVA) | payer OTHER, SELFPAY | PROVIDERS: PCP Nurse Practitioner Family; Visit Provider Internal Medicine | DX: E11.65 Type 2 diabetes mellitus with hyperglycemia (principal); I10 Essential (primary) hypertension; Z79.4 Long term (current) use of insulin; Z91.85 Personal history of military service | CPT/HCPCS: 82947; 83036; 99212 ==

== ENCOUNTER 2024-06-11 15:17 | Outpatient (AMB) | payer OTHER, SELFPAY ==
[2024-06-11 15:32] VITALS: BP 124/82; PULSE 98; O2SAT 99; BMI 33.5
--- NOTE | 2024-06-11 15:32 | A.OFFVIS_ITS ---
Vital Signs 06/11/24 15:32 Height 5 ft 2 in Weight 182 lb 15.739 oz BMI 33.5 BP 124/82 Blood Pressure Location Rt brachial Position Sitting Pulse 98 Pulse Source Pulse Oximeter Pulse Oximetry (%) 99 Oxygen Delivery Method Room Air Intake Visit Reasons: DM Intake Note: Patient presents today for a follow-up on Type 2 Diabetes Mellitus: Last Diabetic eye exam was on: DUE Last Podiatry exam was on: Does not see a Raw Products Director Most recent HbA1c: DUE%, 06/11/2024 Random Glucose- 96 mg/dL, Today Operating Room Tech Required: No Accompanied by: Self / Same As Patient Allergies naproxen [NAPROXEN] Allergy (Severe, Verified 03/11/24 16:09) LIPS SWELL, Oral hives prednisone [PREDNISONE] Allergy (Severe, Verified 03/11/24 16:09) LIPS SWELL, Lip swelling, skin breaking Medication List - Last Reconciled 06/12/24 by Dasia Rey MD azithromycin For 250 mg dose pack: take 500 mg today (day 1), then 250 mg for 4 days (days 2-5) PO bupropion HCl XL 300 mg PO QAM buspirone 7.5 mg PO BID 90 days flash glucose scanning reader (FreeStyle Job 14 Day [place]) bid testing flash glucose sensor (FreeStyle Job 14 Day Sensor kit) BID testing FreeStyle Job 2 [place] (flash glucose scanning reader) TID testing, KIT NS FreeStyle Job 2 Sensor (flash glucose sensor) TID testing NS insulin degludec (Tresiba FlexTouch U-100 insulin) 30 units (0.3 mL) subcut BEDTIME ketoconazole 2% 1 appl topical BID 14 days losartan 25 mg PO DAILY metformin 1,000 mg PO BID 90 days pen needle, diabetic (BD Ultra-Fine Mini Pen Needle) USE DIRECTED FOR DIABETE S rosuvastatin 10 mg PO DAILY 90 days tirzepatide (Mounjaro) 5 mg (0.5 mL) subcut QWEEK HPI Comments Details: Ramses is a 48 year old male with a past medical history of IDDM presenting for diabetes Medical history: HTN, bifascicular heart block Diagnosed at 41. Was having polyuria, polydipsia. Current medication: Metformin 1000mg twice daily, mounjaro 5mg weekly, tresiba 30u bedtime (decreased from 35 units last visit). Has lost 5 pounds since his last visit POC A1C today 6.5%. A1C 03/11 6.2% A1C 10.1% 10/27/23 On losartan, crestor Job sensor download, GMI 6.5%. TGT 87%, low 1%, high 12% Family history of diabetes, thyroid Eye exam: UTD. Recently seen Denies neuropathy ROS CONSTITUTIONAL: Denies weight loss, fever and chills. HEENT: Denies changes in vision and hearing. RESPIRATORY: Denies SOB and cough. CV: Denies palpitations and CP GI: Denies abdominal pain, nausea, vomiting and diarrhea. : Denies dysuria and urinary frequency. MSK: Denies new myalgia and joint pain. SKIN: Denies rash and. pruritus. NEUROLOGICAL: Denies headache PSYCHIATRIC: Denies recent changes in mood. PHYSICAL EXAM: GENERAL: Alert and oriented x 3. NAD EYES: EOMI. Anicteric. HENT: Moist mucous membranes. No scleral icterus. No cervical lymphadenopathy. LUNGS: Clear to auscultation bilaterally. CARDIOVASCULAR: Regular rate and rhythm. No murmur. No JVD. ABDOMEN: Soft, non-tender +bs EXTREMITIES: No edema. Non-tender. SKIN: No rashes or lesions. Warm. NEUROLOGIC: No focal neurological deficits. CN II-XII grossly intact PSYCHIATRIC: Cooperative. Appropriate mood and affect [facility] Medical History Insomnia PTSD (post-traumatic stress disorder) Anxiety Type 2 diabetes mellitus Surgical History Hx of colonoscopy History of incision and drainage H/O circumcision Family History Father HTN (hypertension) Prostate atrophy Mother Arthritis Thyroid disease Brother Diabetes 1.5, managed as type 1 Son Diabetes 1.5, managed as type 1 Daughter Arthritis Paternal Grandfather Heart attack Paternal Uncle Heart attack Maternal Grandfather Heart attack Social History Housing: House Alcohol intake: current Alcohol intake frequency: holidays/special occasions only Patient Tobacco Use Status: Former Tobacco user e-Cigarette/Vaping Use: Currently Using Second Hand Smoke Exposure: No service: Yes Current occupational status: retired Current occupation: retired [email or web address] Cognitive needs: No Hearing needs: No Vision needs: No Physical Exam Vital Signs: Last Vital Signs Pulse 98 06/11/24 15:32 BP 124/82 06/11/24 15:32 Pulse Ox 99 06/11/24 15:32 Oxygen Delivery Method Room Air 06/11/24 15:32 BMI result Body Mass Index 33.5 Office Procedures Glucose Monitoring Details Details: Job. ctive 47%, Avg BG 135 with GMI 6.5%, TGT 87%, high 12%, low 1% 58622 - Continuous Glucose Monitoring, patient provides equipment Procedure code (CPT) selection complete Results Reviewed Results Reviewed: Laboratory Last Values Glucose (Clinic) 96 mg/dL (60-115) 06/11/24 15:37 Assessment & Plan Assessment & Plan (1) Type 2 diabetes mellitus: Code(s): E11.9 - Type 2 diabetes mellitus without complications Category: Medical Qualifiers: Diabetes mellitus complication status: with hyperglycemia Diabetes mellitus fpc insulin use: with fpc use Qualified Code(s): E11.65 - Type 2 diabetes mellitus with hyperglycemia; Z79.4 - termination clerk (current) use of insulin Plan: controlled. continue current medications Discussed decreasing mounjaro if continues to lose weight He will follow up in 3 months Continue eye exams Medications: Refilled metformin 1,000 mg PO BID 180 tabs 3RF 90 days tirzepatide (Mounjaro) 5 mg (0.5 mL) subcut QWEEK 6 mL 3RF E11.9 - Type 2 diabe kyle mellitus without complications insulin degludec (Tresiba FlexTouch U-100 insulin) 30 units (0.3 mL) subcut BEDTIME 45 mL 3RF Coding Level of Care Code Est Pt Level 4 (09070) Diagnoses Type 2 diabetes mellitus with hyperglycemia, with long-term current use of insulin E11.65; Z79.4 Diabetes mellitus complication status: with hyperglycemia Diabetes mellitus truck terminal manager insulin use: with truck terminal manager use CPT Codes Details - CPT: 25468 - Continuous Glucose Monitoring, patient provides equipment ([id number])
[2024-06-11 16:40] LABS: Glucose, Whole Blood 96 mg/dL (60-115)
== END 2024-06-11 15:58 | disposition home or self-care (01) ==
PROVIDERS: PCP Nurse Practitioner Family; Visit Provider Internal Medicine
DX: E11.65 Type 2 diabetes mellitus with hyperglycemia (principal); Z79.4 Long term (current) use of insulin

== ENCOUNTER → 2024-06-11 15:17 | Outpatient (BNVA) | payer OTHER, SELFPAY | PROVIDERS: PCP Nurse Practitioner Family; Visit Provider Internal Medicine | DX: E11.65 Type 2 diabetes mellitus with hyperglycemia (principal); Z79.4 Long term (current) use of insulin | CPT/HCPCS: 82947; 95249; 99212 ==

== ENCOUNTER 2024-08-10 15:00 | Outpatient (AMB) | payer OTHER, SELFPAY ==
[2024-08-10 15:02] VITALS: BP 124/74; PULSE 102; RESP 18; TEMP 37.4; O2SAT 98; BMI 33.8
--- NOTE | 2024-08-10 15:02 | A.OFFPC_ITS ---
Vital Signs 08/10/24 15:02 Height 5 ft 2 in Weight 185 lb BMI 33.8 BP 124/74 Blood Pressure Location Lt brachial Position Sitting Respiration 18 Pulse 102 H Pulse Source Pulse Oximeter Temp 99.4 F Temp Source Oral Pulse Oximetry (%) 98 Oxygen Delivery Method Room Air Intake Visit Reasons: Annual PE Intake Note: Pt is here today for PE. Pt saw [facility] [place] and his A1c was 6.5. Allergies naproxen [NAPROXEN] Allergy (Severe, Verified 08/10/24 15:50) LIPS SWELL, Oral hives prednisone [PREDNISONE] Allergy (Severe, Verified 08/10/24 15:50) LIPS SWELL, Lip swelling, skin breaking Medication List - Last Reconciled 08/10/24 by DENIS Rae- bupropion HCl XL 300 mg PO QAM buspirone 7.5 mg PO BID 90 days flash glucose scanning reader (FreeStyle Job 14 Day [place]) bid testing flash glucose sensor (FreeStyle Job 14 Day Sensor kit) BID testing FreeStyle Job 2 [place] (flash glucose scanning reader) TID testing, KIT NS FreeStyle Job 2 Sensor (flash glucose sensor) TID testing NS insulin degludec (Tresiba FlexTouch U-100 insulin) 40 units subcut BEDTIME losartan 25 mg PO DAILY metformin 1,000 mg PO BID 90 days pen needle, diabetic (BD Ultra-Fine Mini Pen Needle) USE DIRECTED FOR DIABETES rosuvastatin 10 mg PO DAILY 90 days tirzepatide (Mounjaro) 5 mg (0.5 mL) subcut QWEEK Tobacco use date assessed: 08/07/23 Dental Screening Dental Screen Date: 08/07/23 Did you have a dental visit in the last 12 months?: Yes Did you have a dental problem in the last 6 months where you did not have access to dental care?: No Was dental information given to patient?: Patient has dentist HPI Annual PE HPI Details History of Present Illness The patient is a 49-year-old male presenting for a follow-up regarding his diabetes management. He reports that his diabetes mellitus is under control, with an A1c recorded at 6.5%. He feels well and is managing his condition effectively. No symptoms indicating acute exacerbation of his chronic conditions were reported during this visit. Slight temp noted, pt is completely asymptomatic Health Maintenance - Colonoscopy: Up to date. - PSA test: Ordered for this visit. 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 Review of Systems - denies any s/s of infection, chills, n /v - Cardiovascular: Denies chest pain, sli ght tachycardia noted. - Respiratory: Denies shortness of breat h. -denies any neuropathy - Gastrointestinal: Denies abdominal kiah n, blood in stool, constipation, and diarrhea. -denies any si or hi - Physical Exam General: Cooperative, healthy appearing, comfortable, no acute distress and well developed Orientation: Patient oriented x3 Limitations: No limitations Head: Normal to inspection Ears: Hearing grossly normal bilaterally Nose: Normal external nose present Face and sinus: Normal facial exam Eyes: Appearance normal, both eyes and all related structures Neck: Normal visual inspection and Yes full ROM Respiratory: Normal respiratory effort and able to speak in complete sentences. Clear to auscultation bilaterally Cardiovascular: Slightly tachycardic when coming in the room, regular rate and rhythm during auscultation. Normal S1 and S2 GI: Normal to inspection. Soft to palpation and nontender Skin: No rashes or lesions noted Neuro: Patient oriented x3 Extremities: Normal to inspection Results - Labs: A1c reported at 6.5%. Plan 1. 5%. The PSA test will be carried out to support routine health maintenance and screen for prostate issues. The patient is advised to monitor for any new symptoms, particularly given potential exposure to family illness, and follow up accordingly. An EKG is recommended for evaluating the slight tachycardia observed upon entering the examination room, although the patient was normal upon auscultation. No adjustments in medication or current management strategy were indicated during this visit.: Discussion Notes I discussed the patient's current status and management of diabetes mellitus, emphasizing that his A1c is at a controlled level of 6.5%. We reviewed the importance of maintaining routine check-ups with his ostomy rn and closely monitoring for any changes in his condition. I also highlighted the steps involved in the ongoing management of his diabetes and addressed the need for an EKG due to slight tachycardia observed. Additionally, I have ordered a PSA test as part of the health maintenance strategy. We also discussed his current exposure to potential viral infections through family and the importance of seeking care should symptoms develop. Patient Instructions - Continue your current diabetes managem ent plan as advised by your ostomy rn. - Monitor for any new symptoms, especial ly with potential exposure from grandchildren. - Get the PSA test done as ordered for [facility] [employer] screening. - Follow up with the cardiology departme regarding the EKG. - Report any new health changes promptly . [facility] Medical History Insomnia PTSD (post-traumatic stress disorder) Anxiety Type 2 diabetes mellitus Surgical History Hx of colonoscopy History of incision and drainage H/O circumcision Family History Father HTN (hypertension) Prostate atrophy Mother Arthritis Thyroid disease Brother Diabetes 1.5, managed as type 1 Son Diabetes 1.5, managed as type 1 Daughter Arthritis Paternal Grandfather Heart attack Paternal Uncle Heart attack Maternal Grandfather Heart attack Social History Housing: House Alcohol intake: current Alcohol intake frequency: holidays/special occasions only Patient Tobacco Use Status: Former Tobacco user e-Cigarette/Vaping Use: Currently Using Second Hand Smoke Exposure: No service: Yes Current occupational status: retired Current occupation: retired Cognitive needs: No Hearing needs: No Vision needs: No Questionnaire PHQ-9 Over the last 2 weeks, how often have you been bothered by any of the following problems? 1. Little interest or pleasure in doing things: not at all 2. Feeling down, depressed, or hopeless: not at all 3. Trouble falling or staying asleep, or sleeping too much: not at all 4. Feeling tired or having little energy: not at all 5. Poor appetite or overeating: not at all 6. Feeling bad about yourself - or that you are a failure or have let yourself or your family down: not at all 7. Trouble concentrating on things, such as reading the newspaper or watching television: not at all 8. Moving or speaking so slowly that other people could have noticed. Or the opposite - being so fidgety or restless that you have been moving around a lot more than usual: not at all 9. Thoughts that you would be better off or of hurting yourself in some way: not at all Total score: 0 Depression Screening Interpretation: Negative Depression Screening Done: Yes 62782 - PHQ-9 Billing: Yes Source: Developed by Drs. Shiraz Acevedo, Nilda Zimmerman, Orestes Colby and colleagues, with an educational magdy from [employer]. Thrive Questionnaire Date Thrive assessed: 08/10/24 I am a: Patient What is your living situation today?: I have a steady place to live Within the past 12 months, did the food you bought not last and you didn't have the money to get more?: Never true Within the past 12 months, did you worry whether your food would run out before you got money to buy more?: Never true Do you have trouble paying for medicines?: No Do you have trouble getting transportation to medical appointments?: No Do you have trouble paying your heating and electricity bill?: No Do you have trouble taking care of your child, family member or friend?: No Do you have trouble with day-to-day activities such as bathing, preparing meals, shopping, managing finances, etc.?: No Are you currently unemployed and looking for a job?: No Are you interested in more education?: No Please select the resources that you would like help with: None Currently or been in a relationship where the following occur: No concerns reported THRIVE Score: 0 AUDIT C Alcohol Use Questionnaire (AUDIT-C) 1. How often do you have a drink containing alcohol?: 2-4 times a month 2. How many drinks containing alcohol do you have on a typical day when you are drinking?: 1 or 2 3. How often do you have six or more drinks on one occasion?: Never Total Score: 2 Score Reviewed/Action Taken: Yes STEPHY-7 AMB Questionnaire STEPHY-7 Date STEPHY - 7 assessed: 08/10/24 Feeling nervous, anxious, or on edge: 0 = Not at all Not being able to stop or control worryin = Not at all Worrying too much about different things: 0 = Not at all Trouble relaxin = Not at all Being so restless that it is hard to sit still: 0 = Not at all Becoming easily annoyed or irritable: 0 = Not at all Feeling afraid as if something awful might happen: 0 = Not at all Total STEPHY-7 score (0-4 normal; 5-9 mild; 10-14 moderate; 15-21 severe): 0 Source: Developed by Drs. Shiraz Acevedo, Nilda Zimmerman, Orestes Colby and colleagues, with an educational magdy from [employer]. STEPHY-7 Assessment Billing STEPHY-7 Assessment Tool: STEPHY-7 Assessment 88186 Physical exam (Primary Care) Vital Signs: Last Vital Signs Temp 99.4 F 08/10/24 15:02 Pulse 102 H 08/10/24 15:02 Resp 18 08/10/24 15:02 BP 124/74 08/10/24 15:02 Pulse Ox 98 08/10/24 15:02 Oxygen Delivery Method Room Air 08/10/24 15:02 BMI result Body Mass Index 33.8 Tobacco/Smoking Status: Tobacco use Status Tobacco use date assessed 08/07/23 08/10/24 15:07 Patient Tobacco Use Status Former Tobacco user 08/10/24 15:07 e-Cigarette/Vaping Use Currently Using 08/10/24 15:07 PHQ-9: PHQ-9 Score PHQ-9: Total score 0 08/10/24 15:07 Depression Screening Interpretation: Negative Thrive Assessment: Date of Thrive Assessment Date Thrive assessed 08/10/24 08/10/24 15:07 Currently or been in a relationship where the following occur: No concerns reported Coding Level of Care Code Est Pt Prev Care 40-64y(74013) Diagnoses Physical exam Z00.00 Screening for prostate cancer Z12.5 Bifascicular block I45.2 Additional Codes STEPHY-7 Assessment Billing - STEPHY-7 Assessment Tool: STEPHY-7 Assessment 55001 ([id number]) PHQ-9 - 86442 - PHQ-9 Billing: Yes ([id number]) Assessment & Plan Assessment & Plan (1) Physical exam: Code(s): Z00.00 - Encounter for general adult medical examination without abnormal findings Category: Medical (2) Screening for prostate cancer: Code(s): Z12.5 - Encounter for screening for malignant neoplasm of prostate Category: Medical (3) Bifascicular block: Code(s): I45.2 - Bifascicular block Category: Medical Plan . Orders: Orders Complete Blood Count Auto Diff Today Wm Valentine [facility] Z00.00 - Encounter for general adult medical examination without abnormal findings Lipid Panel Today Wm Tuttlejordansukhirola [facility] Z00.00 - Encounter for general adult medical examination without abnormal findings Prostate Specific Antigen Scr Today Wm Canturola [facility] Z12.5 - Encounter for screening for malignant neoplasm of prostate Comprehensive [place]. Panel Fast Today Wm Tuttlejeffrey [facility] Z00.00 - Encounter for general adult medical examination without abnormal findings TSH reflex Free T4 Today Wm Tuttlejeffrey [facility] Z00.00 - Encounter for general adult medical examination without abnormal findings UA CC w/rflx Micro + Cult Today Wm Tuttlejeffrey [facility] Z00.00 - Encounter for general adult medical examination without abnormal findings AMB EKG-In Office Today Wm Tuttlejeffrey [facility] I45.2 - Bifascicular block Medications: Changed From insulin degludec (Tresiba FlexTouch U-100 insulin) 30 units (0.3 mL) subcut BEDTIME 45 mL 3RF To insulin degludec (Tresiba FlexTouch U-100 insulin) 40 units subcut BEDTIME Dasia Rey MD
== END 2024-08-10 16:14 | disposition home or self-care (01) ==
LOC: HO.HMCC 15:01
PROVIDERS: PCP Nurse Practitioner Family; Visit Provider Nurse Practitioner Family
DX: Z00.00 Encounter for general adult medical examination without abnormal findings (principal); Z12.5 Encounter for screening for malignant neoplasm of prostate; I45.2 Bifascicular block

== ENCOUNTER → 2024-08-10 15:00 | Outpatient (BNVA) | payer OTHER, SELFPAY | PROVIDERS: PCP Nurse Practitioner Family; Visit Provider Nurse Practitioner Family | DX: Z00.00 Encounter for general adult medical examination without abnormal findings (principal); I45.2 Bifascicular block | CPT/HCPCS: 96127 ==

== ENCOUNTER 2024-09-09 15:48 | Outpatient (AMB) | payer OTHER, SELFPAY ==
--- NOTE | 2024-09-09 15:51 | A.OFFVIS_ITS ---
Vital Signs 09/09/24 15:54 Height 5 ft 2 in Weight 185 lb 3.013 oz BMI 33.9 BP 116/78 Blood Pressure Location Rt brachial Position Sitting Pulse 96 Pulse Source Pulse Oximeter Pulse Oximetry (%) 98 Oxygen Delivery Method Room Air Intake Visit Reasons: DM Intake Note: Patient presents today for a follow-up on Type 2 Diabetes Mellitus: Last Diabetic eye exam was on: 06/2024, [employer] Last Podiatry exam was on: Does not see a Electronics Processor Most recent HbA1c: 7.3%, 09/09/2024 Random Glucose- 213 mg/dL, Today Track Liner Operator Required: No Accompanied by: Self / Same As Patient Allergies naproxen [NAPROXEN] Allergy (Severe, Verified 09/09/24 15:52) LIPS SWELL, Oral hives prednisone [PREDNISONE] Allergy (Severe, Verified 09/09/24 15:52) LIPS SWELL, Lip swelling, skin breaking HPI Comments Details: Ramses is a 49 year old male with a past medical history of IDDM presenting for diabetes Medical history: HTN, bifascicular heart block Diagnosed at 41. Was having polyuria, polydipsia. Current medication: Metformin 1000mg twice daily, mounjaro 5mg weekly, tresiba 40u bedtime (decreased from 35 units last visit). POC A1C today 7.3%, last 6.5%. A1C 03/11 6.2% A1C 10.1% 10/27/23 On losartan, crestor Job sensor reviewed, GMI 14 days >7%. No hypoglycemia Family history of diabetes, thyroid Eye exam: UTD. Recently seen Denies neuropathy ROS CONSTITUTIONAL: Denies weight loss, fever and chills. HEENT: Denies changes in vision and hearing. RESPIRATORY: Denies SOB and cough. CV: Denies palpitations and CP GI: Denies abdominal pain, nausea, vomiting and diarrhea. : Denies dysuria and urinary frequency. MSK: Denies new myalgia and joint pain. SKIN: Denies rash and. pruritus. NEUROLOGICAL: Denies headache PSYCHIATRIC: Denies recent changes in mood. PHYSICAL EXAM: GENERAL: Alert and oriented x 3. NAD EYES: EOMI. Anicteric. HENT: Moist mucous membranes. No scleral icterus. No cervical lymphadenopathy. LUNGS: Clear to auscultation bilaterally. CARDIOVASCULAR: Regular rate and rhythm. No murmur. No JVD. ABDOMEN: Soft, non-tender +bs EXTREMITIES: No edema. Non-tender. SKIN: No rashes or lesions. Warm. NEUROLOGIC: No focal neurological deficits. CN II-XII grossly intact PSYCHIATRIC: Cooperative. Appropriate mood and affect [facility] Medical History Insomnia PTSD (post-traumatic stress disorder) Anxiety Type 2 diabetes mellitus Surgical History Hx of colonoscopy History of incision and drainage H/O circumcision Family History Father HTN (hypertension) Prostate atrophy Mother Arthritis Thyroid disease Brother Diabetes 1.5, managed as type 1 Son Diabetes 1.5, managed as type 1 Daughter Arthritis Paternal Grandfather Heart attack Paternal Uncle Heart attack Maternal Grandfather Heart attack Social History Housing: House Alcohol intake: current Alcohol intake frequency: holidays/special occasions only Patient Tobacco Use Status: Former Tobacco user e-Cigarette/Vaping Use: Currently Using Second Hand Smoke Exposure: No service: Yes Current occupational status: retired Current occupation: retired Cognitive needs: No Hearing needs: No Vision needs: No Physical Exam Vital Signs: Last Vital Signs Pulse 96 09/09/24 15:54 BP 116/78 09/09/24 15:54 Pulse Ox 98 09/09/24 15:54 Oxygen Delivery Method Room Air 09/09/24 15:54 BMI result Body Mass Index 33.9 Results AMB Hemoglobin A1c AMB Hemoglobin A1c 7.3 % Last Edit by MIGUEL Chavis on 09/09/24 16:07 Results Reviewed Results Reviewed: Laboratory Last Values Glucose (Clinic) 213 mg/dL (60-115) H 09/09/24 15:57 Hgb A1c (Clinic) 7.3 % (4.0-6.0) H 09/09/24 16:02 Assessment & Plan Assessment & Plan (1) Type 2 diabetes mellitus: Code(s): E11.9 - Type 2 diabetes mellitus without complications Category: Medical Qualifiers: Diabetes mellitus group home insulin use: with group home use Diabetes mellitus complication status: with hyperglycemia Qualified Code(s): E11.65 - Type 2 diabetes mellitus with hyperglycemia; Z79.4 - director long term care (current) use of insulin (2) HTN (hypertension): Code(s): I10 - Essential (primary) hypertension Category: Medical Qualifiers: Hypertension type: primary hypertension Qualified Code(s): I10 - Essential (primary) hypertension Plan DM with slightly worsened diabetic control Increase lantus to 44 units and up to 50 as needed before next visit Follow up in 3months or sooner as needed Orders: Orders AMB Hemoglobin A1c 09/09/24 E11.65 - Type 2 diabetes mellitus with hyperglycemia, Z79.4 - director long term care (current) use of insulin Medications: New FreeStyle Job 2 Plus Sensor (blood-glucose sensor) every 15 days 6 ea 3RF NS E11.65 - Type 2 diabetes mellitus with hyperglycemia, Z79.4 - director long term care (current) use of insulin FreeStyle Job 2 Plus Sensor (blood-glucose sensor) every 15 days 6 ea 3RF NS E11.65 - Type 2 diabetes mellitus with hyperglycemia, Z79.4 - director long term care (current) use of insulin Coding Level of Care Code Est Pt Level 4 (46071) Diagnoses Type 2 diabetes mellitus with hyperglycemia, with long-term current use of insulin E11.65; Z79.4 Diabetes mellitus group home insulin use: with group home use Diabetes mellitus complication status: with hyperglycemia Primary hypertension I10 Hypertension type: primary hypertension
--- OUTSIDE RECORDS SUMMARY | 2024-09-09 15:51 | XMS_ITS | Continuity of Care Document ---
Author Name [facility] Organization [facility] Care Team Providers Care Lead Application Architect Name Role Phone [facility] Unavailable Unavailable Problems Combined list of problems from Department of Defense and Veterans Affairs facilities. It does not include entries that were removed or entered in error. Problem Status Onset Date Problem Type Date of Resolution Comments Source Adjustment Disorder with depressed mood (ICD-9-CM 309.0) [facility] visit for: laboratory Inactive Condition DoD NORMAL ROUTINE HISTORY AND PHYSICAL Inactive Condition No chronic medical problems. Pt needs HIV reordered. Labs o/w unremarkable - HDL is low. ROS negative. Pt has weight issues, but is fairly muscular also. [facility] visit for: services physical Inactive Condition [facility] visit for: ears / hearing exam Active Condition [facility] REFRACTIVE ERROR - HYPERMETROPIA Active Condition GLASSES WILL BE ORDERED TO BE WORN NVO'S OR PRN. MONITOR IN 1 YEAR. [facility] ASTIGMATISM - REGULAR Active Condition [facility] visit for: single organ system exam eyes Inactive Condition PX HAS A HYPOPIGMENTED AREA ADJACENT TO THE [place] OS. PX ED. AMSLER WAS NORMAL. FUNDUS PHOTO WAS TAKEN. MONITOR IN 1 YEAR. [facility] Diagnosis: ICD-10-CM Z46.0 Encounter for fit/adjst of spectacles and contact lenses Active Diagnosis [facility] Medications Combined list of outpatient medications from Department of Defense and Veterans Affairs facilities.Medications provided include 1) outpatient medications from the last 15 months, and 2) patient-reported medications. Medication Details Route Status Patient Instructions Prescription Expires Prescription Number Last Dispense Date Ordering Provider Order Date Order Qty Source AZITHROMYCI N (azithromyc in), 250 MG, TABLET, ORAL, TAGI PHARMA, 6 ea. BLIST PACK Active [id number] 2023 6 Pharmac y Data Transac tion Service Facilit y BUPROPION XL (bupropion HCl), 300 MG, TAB ER 24H, ORAL, AVKARE, 500 ea. BOTTLE Active [id number] 2023 90 Pharmac y Data Transac tion Service Facilit y BUPROPION XL (bupropion HCl), 300 MG, TAB ER 24H, ORAL, PILI PHARMACEU, 500 ea. BOTTLE Active [id number] 4 2023 90 Pharmac y Data Transac tion Service Facilit y INSULIN DEGLUDEC PEN (U-100) (insulin degludec), 100/ML (3), INSULN PEN, SUBCUT, XIANG NORDISK, 3 ml SYRINGE Active [id number] 4 2023 45 Pharmac y Data Transac tion Service Facilit y INSULIN DEGLUDEC PEN (U-100) (insulin degludec), 100/ML (3), INSULN PEN, SUBCUT, XIANG NORDISK, 3 ml SYRINGE Cancele d [id number] : 2023 0 Pharmac y Data Transac tion Service Facilit y INSULIN DEGLUDEC PEN (U-100) (insulin degludec), 100/ML (3), INSULN PEN, SUBCUT, XIANG NORDISK, 3 ml SYRINGE Cancele d [id number] : 2023 0 Pharmac y Data Transac tion Service Facilit y LORAZEPAM 0.5MG TAB TAKE ONE TABLET BY MOUTH THREE TIMES DAILY NEEDED ORAL ACTIVE SORAIDA CARO MD 2011 [facility] LOSARTAN POTASSIUM (losartan potassium), 25 MG, TABLET, ORAL, XLCARE PHARMACE, 1000 ea. BOTTLE Active [id number] 4 2023 90 Pharmac y Data Transac tion Service Facilit y METFORMIN HCL (METFORMIN HCL), 1000 MG, TABLET, ORAL, [employer] 500 ea. BOTTLE Active [id number] 4 2023 180 Pharmac y Data Transac tion Service Facilit y METFORMIN HCL (METFORMIN HCL), 1000 MG, TABLET, ORAL, [employer] 500 ea. BOTTLE Active [id number] 2023 180 Pharmac y Data Transac tion Service Facilit y TRESIBA FLEXTOUCH U-100 (insulin degludec), 100/ML (3), INSULN PEN, SUBCUT, XIANG NORDISK, 3 ml SYRINGE Active [id number] 2023 15 Pharmac y Data Transac tion Service Facilit y TRESIBA FLEXTOUCH U-100 (insulin degludec), 100/ML (3), INSULN PEN, SUBCUT, XIANG NORDISK, 3 ml SYRINGE Active [id number] 2023 15 Pharmac y Data Transac tion Service Facilit y TRULICITY (DULAGLUTID E), 1.5 MG/0.5, PEN INJCTR, SUB-Q, [employer] 0.5 ml SYRINGE Cancele d [id number] : 2023 0 Pharmac y Data Transac tion Service Facilit y TRULICITY (DULAGLUTID E), 1.5 MG/0.5, PEN INJCTR, SUB-Q, [employer] 0.5 ml SYRINGE Cancele d [id number] : 2023 0 Pharmac y Data Transac tion Service Facilit y TRULICITY (dulaglutid e), 3 MG/0.5ML, PEN INJCTR, SUBCUT, [employer] .5 ml SYRINGE Cancele d [id number] 4 [id number] : 2023 0 Pharmac y Data Transac tion Service Facilit y Allergies, Adverse Reactions, Alerts Combined list of allergies from Department of Defense and Veterans Affairs facilities. It does not include entries that were removed or entered in error. Substance Category Reaction Severity Reaction type Status Date Reported Comments Source No Known Allergies Drug allergy (disorder) active 06/12/2006 [facility] Immunizations Combined list of available immunizations from the Department of Defense and Veterans Affairs facilities. Immunization Series Date Given Administered By Site Reaction Lot Number CVX Code Drug Yard Conductor Status Comments Source Influenza, injectable, quadrivalent, preservative free 1 2016 [id number] Seqirus (SEQ) comple t ed Influenza , injectabl e, quadrival ent, preservat mikaela free [facility] Influenza, seasonal, injectable 1 2015 [id number] 141 Seqirus (SEQ) comple t ed Influenza , seasonal, injectabl e DoD Influenza, seasonal, injectable, preservative free 2014 WOOD, () Not Given Influenza , seasonal, injectabl e, preservat mikaela free DoD Influenza, seasonal, injectable 1 2014 [id number] 141 CS [employer] (CSL) complet ed Influenza , seasonal, injectabl e DoD measles, mumps and rubella virus vaccine 2 2014 UNK 03 Unknown (UNK) Not Given measles, mumps and rubella virus vaccine DoD measles, mumps and rubella virus vaccine 1 2014 [id number] Merck (MSD) complet ed measles, mumps and rubella virus vaccine DoD varicella virus vaccine 1 2014 UNK 21 Unknown (UNK) Not Given varicella virus vaccine DoD Influenza, seasonal, injectable 1 2013 [id number] 141 CS [employer] (CSL) complet ed Influenza , seasonal, injectabl e DoD Influenza, seasonal, injectable 1 2012 [id number] 141 Marqui. (NOV) complet ed Influenza , seasonal, injectabl e DoD tetanus toxoid, reduced diphtheria toxoid, and acellular pertu is vaccine, adsorbed 1 2011 [id number] Unknown (UNK) comple t ed tetanus toxoid, reduced diphtheri a toxoid, and acellular pertussis vaccine, adsorbed DoD Influenza, seasonal, injectable 0 2011 141 Sanofi Pasteur (PMC) complet ed Influenza , seasonal, injectabl e DoD Influenza, seasonal, injectable, preservative free 0 2011 140 Sanofi Pasteur (PMC) complet ed Influenza , seasonal, injectabl e, preservat mikaela free DoD Influenza, seasonal, injectable 1 2010 UNK 141 Sanofi Pasteur (PMC) complet ed Influenza , seasonal, injectabl e DoD influenza virus vaccine, split virus (incl. purified surface antigen)-reti red CODE 1 2010 [id number] 15 Sanofi Pasteur (PMC) complet ed influenza virus vaccine, split virus (incl. purified surface antigen)- retired CODE DoD hepatitis B vaccine, adult dosage 3 2010 [id number] 43 [facility] (SKB) complet ed hepatitis B vaccine, adult dosage DoD hepatitis B vaccine, adult dosage 2 2009 [id number] 43 [employer] (SKB) complet ed hepatitis B vaccine, adult dosage DoD influenza virus vaccine, live, attenuated, for intranasal use 1 2009 [id number] 111 [employer]. (MED) complet ed influenza virus vaccine, live, attenuate d, for intranasa l use DoD Novel influenza-H1N 1-09, injectable 1 2009 [id number] 127 Marqui. (NOV) complet ed Novel influenza -C0A2-30, injectabl e DoD tetanus and diphtheria toxoids, adsorbed, preservative free, for adult use (2 Lf of tetanus toxoid and 2 Lf of diphtheria toxoid) 1 2005 [id number] 09 Sanofi Pasteur ([facility]) complet ed tetanus and diphtheri a toxoids, adsorbed, preservat mikaela free, for adult use (2 Lf of tetanus toxoid and 2 Lf of diphtheri a toxoid) DoD hepatitis B vaccine, adult dosage 1 2005 [id number] 43 SmithGLOine (SKB) complet ed hepatitis B vaccine, adult dosage DoD anthrax vaccine 7 2003 UNK 24 [facility] [employer] [place] ([facility]) complet ed anthrax vaccine DoD hepatitis A vaccine, adult dosage 2 2003 [id number] Merck (MSD) complet ed hepatitis A vaccine, adult dosage DoD vaccinia (smallpox) vaccine 0 2002 [id number] 75 Matt (CAIO) complet ed vaccinia (smallpox ) vaccine DoD poliovirus vaccine, inactivated 0 2002 [id number] 10 Sanofi Pasteur ([facility]) complet ed polioviru s vaccine, inactivat ed DoD influenza virus vaccine, split virus (incl. purified surface antigen)-reti red CODE 0 2002 [id number] 15 Sanofi Pasteur (PMC) complet ed influenza virus vaccine, split virus (incl. purified surface antigen)- retired CODE DoD anthrax vaccine 6 2002 [id number] 24 [employer]gent [employer] [place] ([facility]) complet ed anthrax vaccine DoD meningococcal polysaccharid e vaccine (MPSV4) 0 2002 [id number] 32 Sanofi Pasteur (PMC) complet ed meningoco ccal polysacch aride vaccine (MPSV4) DoD hepatitis A vaccine, adult dosage 1 2002 [id number] 52 Merck (MSD) complet ed hepatitis A vaccine, adult dosage DoD typhoid Vi capsular polysaccharid e vaccine 0 2002 [id number] 101 Sanofi Pasteur ([facility]) complet ed typhoid Vi capsular polysacch aride vaccine DoD influenza virus vaccine, split virus (incl. purified surface antigen)-reti red CODE 0 2000 [id number] 15 Sanofi Pasteur ([facility]) complet ed influenza virus vaccine, split virus (incl. purified surface antigen)- retired CODE DoD anthrax vaccine 5 1998 [id number] [employer] [place] ([facility]) complet ed anthrax vaccine DoD anthrax vaccine 4 1998 [id number] 24 [employer] [place] ([facility]) complet ed anthrax vaccine DoD anthrax vaccine 3 1998 [id number] 24 [employer] [place] ([facility]) complet ed anthrax vaccine DoD anthrax vaccine 2 1997 [id number] [employer] [place] ([facility]) complet ed anthrax vaccine DoD anthrax vaccine 1 1997 [id number] 24 [employer] [place] ([facility]) complet ed anthrax vaccine DoD Encounters Combined list of: 1) Encounters from Department of Veterans Affairs facilities going backup to the last 18 months, not all VA inpatient encounters are included; 2) Encounters from the Department of Defense facilities going backup to 280 months. Location Location Details Encounter Type Encounter Number Reason For Visit Attending Provider ADM Date DC Date Status Disposition Source [facility] OUTPATIENT [id number] sumaya GAMEZUMAIR ELY E 01/03 Released w/o Limitations [facility]( [facility] [place] [facility]) OUTPATIENT [id number] part 5 years VIRY Damian 06/12 Released w/o Limitations [facility] [place]) OUTPATIENT [id number] hearing test GOGO JONATHAN C 06/12 Released w/o Limitations [place] [place] [facility]) OUTPATIENT [id number] Under 39 PARKER Rasmussen 06/12 Released w/o Limitations [place] [facility]) OUTPATIENT [id number] 5 Year DAVID Chau 07/02 Released w/o Limitations [place] Team [facility]) TELE CONSULT [id number] Notes Entered by: JUSTYN ROCK 04 Jan 2012 1129 ------- ------- ------- ------- -- RACHEL Gold 01/03 [facility] FIT SPECTACLES MULTIFOCAL [id number] Diagnos is: ICD-10- CM Z46.0 Encount er for fit/adj st of spectac les and contact lenses MARA WILBURN 07/18 [facility] Outpatient Encounter [id number] 05/23 [facility] FIT SPECTACLES MULTIFOCAL [id number] Diagnos is: ICD-10- CM Z46.0 Encount er for fit/adj st of spectac les and contact lenses MEHUL RAHMAN 05/27 [facility] Procedures Combined list of: 1) Procedures from Department of Veterans Affairs facilities going back up to thelast 18 months, not all VA non-surgical procedures are included; 2) All procedures from the Department of Defense facilities. Procedure Procedure Type Code Date Perfomer Comments [facility] FUNDUS PHOTOGRAPHY WITH INTERPRETATION AND REPORT 5 DoD SCREENING TEST, PURE TONE, AIR ONLY 4 DoD HANDLING AND/OR CONVEYANCE OF SPECIMEN FOR TRANSFER FROM THE OFFICE TO A LABORATORY 4 DoD HEPATITIS A VACCINE (HEPA), ADULT DOSAGE, FOR INTRAMUSCULAR USE 4 DoD UNLISTED VACCINE/TOXOID 3 DoD UNLISTED VACCINE/TOXOID 3 DoD REMOVAL IMPACTED CERUMEN REQUIRING INSTRUMENTATION, UNILATERAL 3 DoD VIS FUNCT SCREEN,AUTOMAT/SEMI-A UTOMAT BILAT QUANT DETERM VISUAL ACUITY,OCULAR ALIGN,COLOR VISION,PSEUDOISOCHROM AT PLATES,& FIELD VIS (MAY INC ALL/SOME SCRN DETERM FOR CONTRAST SENSITIV,VIS UND GLARE) 7 DoD PURE TONE AUDIOMETRY (THRESHOLD); AIR ONLY 7 DoD TISSUE EXAMINATION BY BRAYDEN SLIDE OF SAMPLES FROM SKIN, HAIR, OR NAILS FOR FUNGI OR ECTOPARASITE OVA OR MITES (EG, SCABIES) 2 DoD PURE TONE AUDIOMETRY (THRESHOLD); AIR ONLY 2 DoD INFLUENZA VIRUS VACCINE, TRIVALENT (IIV3), SPLIT VIRUS, 0.5 ML DOSAGE, FOR INTRAMUSCULAR USE 1 DoD INFLUENZA VIRUS VACCINE, TRIVALENT, LIVE (LAIV3), FOR INTRANASAL USE 1 DoD PHLEBOTOMY, THERAPEUTIC (SEPARATE PROCEDURE) 0 DoD Visual Function Screening Visual Function Screening [id number] PARKER VALENZUELA [facility] Threshold Audiogram (Pure Tone) Threshold Audiogram (Pure Tone) [id number] 7 JONATHAN BOWENS [facility] Ophthalmological New Patient Start Comprehensive [facility] Ophthalmological New Patient [facility] 01467 5 UMAIR PAZ Determination Of Refractive State Determination Of Refractive State 68410 5 UMAIR PAZ Spectacles Services Fitting Monofocals (Not For Aphakia) Spectacles Services Fitting Monofocals (Not For Aphakia) 92095 5 UMAIR PAZ Fundus Photography Fundus Photography [id number] 5 UMAIR PAZ Social History Combined list of available smoking, tobacco, and other social history from Department of Defense and Veterans Affairs facilities. Social History Type Response Date Comment [facility] Tobacco smoking status NHIS CURRENT SMOKER 08/17/2011 pack a day [place] [facility] This section is an empty social history section. DoD
[2024-09-09 15:54] VITALS: BP 116/78; PULSE 96; O2SAT 98; BMI 33.9
[2024-09-09 16:02] LABS: Glucose, Whole Blood 213 mg/dL (60-115)
== END 2024-09-09 16:14 | disposition home or self-care (01) ==
LOC: HO.ENCR 15:49
PROVIDERS: PCP Nurse Practitioner Family; Visit Provider Internal Medicine
DX: E11.65 Type 2 diabetes mellitus with hyperglycemia (principal); Z79.4 Long term (current) use of insulin

== ENCOUNTER → 2024-09-09 15:48 | Outpatient (BNVA) | payer OTHER, SELFPAY | PROVIDERS: PCP Nurse Practitioner Family; Visit Provider Internal Medicine | DX: E11.65 Type 2 diabetes mellitus with hyperglycemia (principal); I10 Essential (primary) hypertension; Z79.4 Long term (current) use of insulin | CPT/HCPCS: 82947; 83036; 99212 ==

== ENCOUNTER 2025-01-20 10:50 | Outpatient (AMB) | payer OTHER, SELFPAY ==
--- NOTE | 2025-01-20 10:54 | A.OFFVIS_ITS ---
Vital Signs 01/20/25 10:55 Height 5 ft 2 in Weight 185 lb 3.013 oz BMI 33.9 BP 120/80 Blood Pressure Location Rt brachial Position Sitting Pulse 92 Pulse Source Pulse Oximeter Pulse Oximetry (%) 98 Oxygen Delivery Method Room Air Intake Visit Reasons: DM Intake Note: Patient presents today for a follow-up on Type 2 Diabetes Mellitus: Last Diabetic eye exam was on: 06/2024, Gilda Corona Last Podiatry exam was on: Does not see a Gas And Oil Checker Most recent HbA1c: 6.8%, 01/20/2025 Random Glucose- 245 mg/dL, Today [employer] Required: No Accompanied by: Self / Same As Patient Allergies naproxen (NAPROXEN) Allergy (Severe, Verified 01/20/25 10:55) LIPS SWELL, Oral hives prednisone (PREDNISONE) Allergy (Severe, Verified 01/20/25 10:55) LIPS SWELL, Lip swelling, skin breaking HPI Comments Details: Ramses is a 49 year old male with a past medical history of IDDM presenting for diabetes Medical history: HTN, bifascicular heart block Diagnosed at 41. Was having polyuria, polydipsia. Current medication: Metformin 1000mg twice daily, Mounjaro 5mg weekly tresiba 40u bedtime POC A1C today is 6.8% from 7.3%, from 6.5% 6.2% 10.1% 10/27/23 CGM reviewed-the past two weeks patients average in 200s. He has increased tresiba up to as far as 50 units On losartan, crestor Family history of diabetes, thyroid Eye exam: 06/2024 Vision works Denies neuropathy ROS CONSTITUTIONAL: Denies weight loss, fever and chills. HEENT: Denies changes in vision and hearing. RESPIRATORY: Denies SOB and cough. CV: Denies palpitations and CP GI: Denies abdominal pain, nausea, vomiting and diarrhea. : Denies dysuria and urinary frequency. MSK: Denies new myalgia and joint pain. SKIN: Denies rash and. pruritus. NEUROLOGICAL: Denies headache PSYCHIATRIC: Denies recent changes in mood. PHYSICAL EXAM: GENERAL: Alert and oriented x 3. NAD EYES: EOMI. Anicteric. HENT: Moist mucous membranes. No scleral icterus. No cervical lymphadenopathy. LUNGS: Clear to auscultation bilaterally. CARDIOVASCULAR: Regular rate and rhythm. No murmur. No JVD. ABDOMEN: Soft, non-tender +bs EXTREMITIES: No edema. Non-tender. SKIN: No rashes or lesions. Warm. NEUROLOGIC: No focal neurological deficits. CN II-XII grossly intact PSYCHIATRIC: Cooperative. Appropriate mood and affect [facility] Medical History Insomnia PTSD (post-traumatic stress disorder) Anxiety Type 2 diabetes mellitus Surgical History Hx of colonoscopy History of incision and drainage H/O circumcision Family History Father HTN (hypertension) Prostate atrophy Mother Arthritis Thyroid disease Brother Diabetes 1.5, managed as type 1 Son Diabetes 1.5, managed as type 1 Daughter Arthritis Paternal Grandfather Heart attack Paternal Uncle Heart attack Maternal Grandfather Heart attack Social History Housing: House Alcohol intake: current Alcohol intake frequency: holidays/special occasions only Patient Tobacco Use Status: Former Tobacco user e-Cigarette/Vaping Use: Currently Using Second Hand Smoke Exposure: No service: Yes Current occupational status: retired Current occupation: retired Cognitive needs: No Hearing needs: No Vision needs: No Physical Exam Vital Signs: Last Vital Signs Pulse 92 01/20/25 10:55 BP 120/80 01/20/25 10:55 Pulse Ox 98 01/20/25 10:55 Oxygen Delivery Method Room Air 01/20/25 10:55 BMI result Body Mass Index 33.9 Results Reviewed Results Reviewed: Laboratory Last Values Glucose (Clinic) 245 mg/dL (60-115) H 01/20/25 11:03 Assessment & Plan Assessment & Plan (1) Type 2 diabetes mellitus: Code(s): E11.9 - Type 2 diabetes mellitus without complications Category: Medical Qualifiers: Diabetes mellitus lobsterman insulin use: with lobsterman use Diabetes mellitus complication status: with hyperglycemia Qualified Code(s): E11.65 - Type 2 diabetes mellitus with hyperglycemia; Z79.4 - joint terminal attack controller (current) use of insulin Plan Type 2 diabetes-controlled however numbers have spiked in the past two weeks. Increase in appetite. Increase mounjaro to 7.5mg weekly. Can increase tresiba up to 50units but he will likely be able to resume 40 once the dose of mounjaro is increased Denies hypoglycemia. Treat any hypoglycemia by rules of 15s Annual eye exam-UTD Return in 3 months. Due for LDL and urine Orders: Orders Lipid Panel 3 Months E11.65 - Type 2 diabetes mellitus with hyperglycemia, I10 - Essential (primary) hypertension, Z79.4 - [facility] (current) use of insulin Comprehensive Met. Panel 3 Months E11.65 - Type 2 diabetes mellitus with hyperglycemia, I10 - Essential (primary) hypertension, Z79.4 - [facility] (current) use of insulin AMB Hemoglobin A1c 3 Months E11.65 - Type 2 diabetes mellitus with hyperglycemia, I10 - Essential (primary) hypertension, Z79.4 - [facility] (current) use of insulin Hemoglobin A1c 3 Months E11.65 - Type 2 diabetes mellitus with hyperglycemia, I10 - Essential (primary) hypertension, Z79.4 - [facility] (current) use of insulin Microalbumin, Random (w Creat) 3 Months E11.65 - Type 2 diabetes mellitus with hyperglycemia, I10 - Essential (primary) hypertension, Z79.4 - [facility] (current) use of insulin Medications: New tirzepatide (Mounjaro) 7.5 mg (0.5 mL) subcut QWEEK 6 mL 3RF E11.65 - Type 2 diabetes mellitus with hyperglycemia, E11.9 - Type 2 diabetes mellitus without complications, Z79.4 - [facility] (current) use of insulin tirzepatide (Mounjaro) 7.5 mg (0.5 mL) subcut QWEEK 6 mL 3RF E11.65 - Type 2 diabetes mellitus with hyperglycemia, E11.9 - Type 2 diabetes mellitus without complications, Z79.4 - joint terminal attack controller (current) use of insulin Changed From insulin degludec (Tresiba FlexTouch U-100 insulin) 40 units subcut BEDTIME To insulin degludec (Tresiba FlexTouch U-100 insulin) 50 units (0.5 mL) subcut BEDTIME 45 mL 3RF 90 days Discontinued tirzepatide (Mounjaro) Discontinued Reason: Doctor's Order 5 mg (0.5 mL) subcut QWEEK 6 mL 3RF E11.9 - Type 2 diabetes mellitus without complications Coding Level of Care Code Est Pt Level 4 (36002) Diagnoses Type 2 diabetes mellitus with hyperglycemia, with long-term current use of insulin E11.65; Z79.4 Diabetes mellitus lobsterman insulin use: with halfway use Diabetes mellitus complication status: with hyperglycemia
[2025-01-20 10:55] VITALS: BP 120/80; PULSE 92; O2SAT 98; BMI 33.9
[2025-01-20 11:06] LABS: Glucose, Whole Blood 245 mg/dL (60-115)
== END 2025-01-20 11:32 | disposition home or self-care (01) ==
LOC: HO.ENCR 10:51
PROVIDERS: PCP Nurse Practitioner Family; Visit Provider Internal Medicine
DX: E11.65 Type 2 diabetes mellitus with hyperglycemia (principal); Z79.4 Long term (current) use of insulin; I10 Essential (primary) hypertension

== ENCOUNTER → 2025-01-20 10:50 | Outpatient (BNVA) | payer OTHER, SELFPAY | PROVIDERS: PCP Nurse Practitioner Family; Visit Provider Internal Medicine | DX: E11.65 Type 2 diabetes mellitus with hyperglycemia (principal); Z79.4 Long term (current) use of insulin | CPT/HCPCS: 82947; 83036; 99212 ==

== ENCOUNTER 2025-02-11 12:59 | Outpatient (AMB) | payer OTHER, SELFPAY ==
[2025-02-11 13:04] VITALS: BP 130/84; PULSE 96; RESP 16; TEMP 36.8; O2SAT 99; BMI 34.2
--- NOTE | 2025-02-11 13:04 | MHC.PC.OV ---
Vital Signs 02/11/25 13:04 Height 5 ft 2 in Weight 187 lb BMI 34.2 BP 130/84 Blood Pressure Location Lt brachial Position Sitting Respiration 16 Pulse 96 Pulse Source Pulse Oximeter Temp 98.2 F Temp Source Oral Pulse Oximetry (%) 99 Intake Visit Reasons: 6 month follow up Collections Representative Required: No Accompanied by: Self / Same As Patient Allergies naproxen (NAPROXEN) Allergy (Severe, Verified 02/11/25 13:25) LIPS SWELL, Oral hives prednisone (PREDNISONE) Allergy (Severe, Verified 02/11/25 13:25) LIPS SWELL, Lip swelling, skin breaking Medication List - Last Reconciled 02/11/25 by Wm Valentine, PROFESSOR OF GRAPHIC DESIGN- bupropion HCl XL 300 mg PO QAM buspirone 7.5 mg PO BID 90 days flash glucose scanning reader (FreeStyle Job 14 Day Matlock) bid testing flash glucose sensor (FreeStyle Job 14 Day Sensor kit) BID testing FreeStyle Job 2 Plus Sensor (blood-glucose sensor) every 15 days NS FreeStyle Job 2 Matlock (flash glucose scanning reader) TID testing, KIT NS FreeStyle Job 2 Sensor (flash glucose sensor) TID testing NS FreeStyle Job 3 Plus Sensor (blood-glucose sensor) every 15 days NS FreeStyle Job 3 Matlock (blood-glucose,life science technician,cont) As directed NS insulin degludec (Tresiba FlexTouch U-100 insulin) 50 units (0.5 mL) subcut BEDTIME 90 days ketoconazole 2% 1 appl topical DAILY losartan 25 mg PO DAILY metformin 1,000 mg PO BID 90 days pen needle, diabetic (BD Ultra-Fine Mini Pen Needle) USE DIRECTED FOR DIABETES rosuvastatin 10 mg PO DAILY 90 days tirzepatide (Mounjaro) 7.5 mg (0.5 mL) subcut QWEEK Tobacco use date assessed: 02/11/25 Dental Screening Dental Screen Date: 02/11/25 Did you have a dental visit in the last 12 months?: Yes Did you have a dental problem in the last 6 months where you did not have access to dental care?: No Was dental information given to patient?: Patient has dentist HPI 6 month follow up HPI Details Chief Complaint The patient presents for follow-up management of hypertension and diabetes. History of Present Illness The patient is a 49-year-old male presenting with follow-up for hypertension and diabetes management. His blood pressure remains controlled, and he denies any symptoms such as dyspnea, chest pain, headache, blurred vision, or dizziness. He is under the care of an creel clerk for diabetes, with a recent HbA1c of 6.8%. He is currently on Mounjaro, experiencing weight loss and feeling well. The patient reports erectile dysfunction, and stress was discussed as a potential contributing factor. A testosterone level will be checked with upcoming labs, and a low dose of sildenafil was prescribed. Social History Health Maintenance - Eye exam is up to date Review of Systems - Cardiovascular: Denies chest pain - Neurological: Denies headache, dizziness - Ophthalmologic: Denies blurred vision - Respiratory: Denies dyspnea Physical Exam General: Cooperative, healthy appearing, comfortable, no acute distress and well developed Orientation: Patient oriented x3 Limitations: No limitations Head: Normal to inspection Ears: Hearing grossly normal bilaterally Nose: Normal external nose present Face and sinus: Normal facial exam Eyes: Appearance normal, both eyes and all related structures. Eye exam is up to date. Neck: Normal visual inspection and Yes full ROM Respiratory: Normal respiratory effort and able to speak in complete sentences. Clear to auscultation bilaterally Cardiovascular: Regular rate and rhythm. Normal S1 and S2 GI: Normal to inspection. Soft to palpation and nontender Skin: No rashes or lesions noted Neuro: Patient oriented x3 Extremities: Normal to inspection. Feet were intact bilat, positive sensation with use of monofilament bilat Results - Labs: HbA1c 6.8% Plan 1. Essential Hypertension The patient's hypertension is well-controlled, with no reported symptoms such as dyspnea, chest pain, or dizziness. Continued monitoring and management will be conducted during follow-up visits. 2. Type 2 Diabetes Mellitus The patient is under endocrinology care, with a recent HbA1c of 6.8%, indicating good control. He is on Mounjaro, experiencing weight loss and feeling well. Follow-up labs are pending to further assess management. 3. Erectile Dysfunction The patient reports erectile dysfunction, with stress discussed as a potential factor. A testosterone level will be checked, and a low dose of sildenafil was prescribed for trial. Discussion Notes I discussed with the patient the management of his hypertension and diabetes, emphasizing the importance of continued monitoring and follow-up. For erectile dysfunction, I explained the potential role of stress and recommended checking testosterone levels. I prescribed a low dose of sildenafil for trial and advised follow-up in six months. Patient Instructions - Continue current medications for hypertension and diabetes. - Complete pending lab tests as soon as possible. - Try the prescribed low dose sildenafil for erectile dysfunction. - Follow up in six months for a physical exam. [facility] Medical History Insomnia PTSD (post-traumatic stress disorder) Anxiety Type 2 diabetes mellitus Surgical History Hx of colonoscopy History of incision and drainage H/O circumcision Family History Father HTN (hypertension) Prostate atrophy Mother Arthritis Thyroid disease Brother Diabetes 1.5, managed as type 1 Son Diabetes 1.5, managed as type 1 Daughter Arthritis Paternal Grandfather Heart attack Paternal Uncle Heart attack Maternal Grandfather Heart attack Social History Housing: House Alcohol intake: current Alcohol intake frequency: holidays/special occasions only Patient Tobacco Use Status: Former Tobacco user e-Cigarette/Vaping Use: Currently Using Second Hand Smoke Exposure: No service: Yes Current occupational status: retired Current occupation: retired Cognitive needs: No Hearing needs: No Vision needs: No Questionnaire PHQ-9 Over the last 2 weeks, how often have you been bothered by any of the following problems? 1. Little interest or pleasure in doing things: not at all 2. Feeling down, depressed, or hopeless: not at all 3. Trouble falling or staying asleep, or sleeping too much: not at all 4. Feeling tired or having little energy: not at all 5. Poor appetite or overeating: not at all 6. Feeling bad about yourself - or that you are a failure or have let yourself or your family down: not at all 7. Trouble concentrating on things, such as reading the newspaper or watching television: not at all 8. Moving or speaking so slowly that other people could have noticed. Or the opposite - being so fidgety or restless that you have been moving around a lot more than usual: not at all 9. Thoughts that you would be better off or of hurting yourself in some way: not at all Total score: 0 Depression Screening Interpretation: Negative Depression Screening Done: Yes 29662 - PHQ-9 Billing: Yes Source: Developed by Drs. Shiraz Acevedo, Nilda Zimmerman, Orestes Colby and colleagues, with an educational magdy from [employer]. Thrive Questionnaire Date Thrive assessed: 08/10/24 I am a: Patient What is your living situation today?: I have a steady place to live Within the past 12 months, did the food you bought not last and you didn't have the money to get more?: Never true Within the past 12 months, did you worry whether your food would run out before you got money to buy more?: Never true Do you have trouble paying for medicines?: No Do you have trouble getting transportation to medical appointments?: No Do you have trouble paying your heating and electricity bill?: No Do you have trouble taking care of your child, family member or friend?: No Do you have trouble with day-to-day activities such as bathing, preparing meals, shopping, managing finances, etc.?: No Are you currently unemployed and looking for a job?: No Are you interested in more education?: No Please select the resources that you would like help with: None Currently or been in a relationship where the following occur: No concerns reported THRIVE Score: 0 STEPHY-7 AMB Questionnaire STEPHY-7 Date STEPHY - 7 assessed: 02/11/25 Feeling nervous, anxious, or on edge: 0 = Not at all Not being able to stop or control worryin = Not at all Worrying too much about different things: 0 = Not at all Trouble relaxin = Not at all Being so restless that it is hard to sit still: 0 = Not at all Becoming easily annoyed or irritable: 0 = Not at all Feeling afraid as if something awful might happen: 0 = Not at all Total STEPHY-7 score (0-4 normal; 5-9 mild; 10-14 moderate; 15-21 severe): 0 Source: Developed by Drs. Shiraz Acevedo, Orestes Gómez and colleagues, with an educational magdy from [employer]. STEPHY-7 Assessment Billing STEPHY-7 Assessment Tool: STEPHY-7 Assessment 78263 Physical exam (Primary Care) Vital Signs: Last Vital Signs Temp 98.2 F 02/11/25 13:04 Pulse 96 02/11/25 13:04 Resp 16 02/11/25 13:04 BP 130/84 02/11/25 13:04 Pulse Ox 99 02/11/25 13:04 BMI result Body Mass Index 34.2 Tobacco/Smoking Status: Tobacco use Status Tobacco use date assessed 02/11/25 02/11/25 13:10 Patient Tobacco Use Status Former Tobacco user 02/11/25 13:07 e-Cigarette/Vaping Use Currently Using 02/11/25 13:07 PHQ-9: PHQ-9 Score PHQ-9: Total score 0 02/11/25 13:28 Depression Screening Interpretation: Negative Thrive Assessment: Date of Thrive Assessment Date Thrive assessed 08/10/24 02/11/25 13:07 Currently or been in a relationship where the following occur: No concerns reported Immunizations Boostrix Tdap 2.5 Lf unit-8 mcg-5 Lf/0.5 mL intramuscular syringe Performing Provider: LAKIA Rae Performing Location: [facility] Administered by: MIGUEL Nichols on 02/11/25 13:41 Dose Route Admin Location Dispensed Lot Number Expiration Date [facility] Sliver Lapper 0.5 mL IM Left Deltoid 0.5 mL [id number] 02/12/27 [id number] [employer] Total Dispensed Waste 0.5 mL 0 % VIS Given Date VIS Provided VIS Publication Date 02/11/25 Single Vaccine 20 Eligibility Eligibility Date Funding Source Not [facility] Eligible 02/11/25 Private Coding Level of Care Code Est Pt Level 3 (88324) Diagnoses Primary hypertension I10 Hypertension type: primary hypertension Type 2 diabetes mellitus with hyperglycemia, with long-term current use of insulin E11.65; Z79.4 Diabetes mellitus terminal operations supervisor insulin use: with terminal operations supervisor use Diabetes mellitus complication status: with hyperglycemia Erectile dysfunction N52.9 Additional Codes STEPHY-7 Assessment Billing - STEPHY-7 Assessment Tool: STEPHY-7 Assessment [id number] ([id number]) PHQ-9 - 16932 - PHQ-9 Billing: Yes ([id number]) Assessment & Plan Assessment & Plan (1) HTN (hypertension): Code(s): I10 - Essential (primary) hypertension Category: Medical Qualifiers: Hypertension type: primary hypertension Qualified Code(s): I10 - Essential (primary) hypertension (2) Type 2 diabetes mellitus: Code(s): E11.9 - Type 2 diabetes mellitus without complications Category: Medical Qualifiers: Diabetes mellitus terminal operations supervisor insulin use: with residential use Diabetes mellitus complication status: with hyperglycemia Qualified Code(s): E11.65 - Type 2 diabetes mellitus with hyperglycemia; Z79.4 - nursing home (current) use of insulin (3) Erectile dysfunction: Code(s): N52.9 - Male erectile dysfunction, unspecified Category: Medical Plan . Orders: Orders Testosterone, Free/Total Today N52.9 - Male erectile dysfunction, unspecified TDaP Immunization Today Z23 - Encounter for immunization Medications: New sildenafil (Viagra) administer 30 minutes to 4 hours before activity 25 mg PO DAILY PRN 10 tabs 0RF sexual activity 10 days
== END 2025-02-11 13:42 | disposition home or self-care (01) ==
LOC: HO.HMCC 13:00
PROVIDERS: PCP Nurse Practitioner Family; Visit Provider Nurse Practitioner Family
DX: I10 Essential (primary) hypertension (principal); E11.65 Type 2 diabetes mellitus with hyperglycemia; Z79.4 Long term (current) use of insulin; N52.9 Male erectile dysfunction, unspecified; Z23 Encounter for immunization

== ENCOUNTER → 2025-02-11 12:59 | Outpatient (BNVA) | payer OTHER, SELFPAY | PROVIDERS: PCP Nurse Practitioner Family; Visit Provider Nurse Practitioner Family | DX: Z23 Encounter for immunization (principal); I10 Essential (primary) hypertension; E11.65 Type 2 diabetes mellitus with hyperglycemia; Z79.4 Long term (current) use of insulin; N52.9 Male erectile dysfunction, unspecified | CPT/HCPCS: 90471; 90715; 96127; 99212 ==

== ENCOUNTER 2025-02-15 06:05 | Outpatient (REF) | payer OTHER, SELFPAY ==
[2025-02-15 10:27] LABS: MANUAL DIFF FLAG NO
[2025-02-15 10:51] LABS: Hematocrit 47.5 % (42.0-52.0); Hemoglobin 15.8 g/dl (14.0-18.0); Imm Gran Abs Auto 0.02 X10*3/uL (0.00-0.03); Imm Gran Pct Auto 0.2 % (0.0-0.4); Lymphocytes Absolute Auto 1.8 X10*3/uL (1.2-4.9); Mean Corpuscular HGB Conc 33.3 g/dl (31.0-36.0); Mean Corpuscular Hemoglobin 29.6 pg (27.0-33.0); Mean Corpuscular Volume 89.1 fL (80.0-98.0); NRBC Abs Auto 0.000 X10*3/uL (0.0-0.012); NRBC Pct Auto 0.0 /100WBC (0.0-0.2); Platelet Count 264 X10*3/uL (160-400); Red Blood Count 5.33 X10*6/uL (4.60-5.80); White Blood Count 8.5 X10*3/uL (4.8-10.8)
[2025-02-15 10:52] LABS: Appearance Urine Turbid; Glucose Urine UA 100 mg/dL (Negative); PH 5.5 (5.0-9.0); Specific Gravity - Urine 1.025 (1.005-1.025)
[2025-02-15 11:07] LABS: Alanine Aminotransferase 34 U/L (0-40); Albumin Level 4.4 g/dL (3.5-5.0); Alkaline Phosphatase 78 U/L (39-117); Anion Gap 12 (12-20); Aspartate Amino Transferase 35 U/L (5-37); Blood Urea Nitrogen 13 mg/dL (9-16); Calcium 9.0 mg/dL (8.4-10.2); Carbon Dioxide 26 mmol/L (22-29); Chloride 103 mmol/L (96-108); Cholesterol 81 mg/dL (<200); Estimated Glomerular Filt Rate > 60; HDL Cholesterol 29 mg/dL (>40); Potassium 4.7 mmol/L (3.3-5.1); Sodium 136 mmol/L (135-145); Total Protein 6.8 g/dL (6.5-8.0); Triglycerides 285 mg/dL (<150)
[2025-02-23 14:33] LABS: Testosterone, Free 138.1 pg/mL (35.0-155.0)
== END 2025-02-15 06:06 | disposition home or self-care (01) ==
LOC: HO.HMGCLDS 06:05
PROVIDERS: PCP Nurse Practitioner Family; Visit Provider Nurse Practitioner Family
DX: Z00.00 Encounter for general adult medical examination without abnormal findings (principal); Z12.5 Encounter for screening for malignant neoplasm of prostate; Z13.29 Encounter for screening for other suspected endocrine disorder; N52.9 Male erectile dysfunction, unspecified
CPT/HCPCS: 36415; 80053; 80061; 81003; 84153; 84402; 84403; 84443; 85025